=== PATIENT | male | born 1945 | race Caucasian/White ===

== ENCOUNTER 2023-04-30 13:27 | Outpatient (REF) | payer BC, MEDICARE, SELFPAY | END 2023-04-30 13:28 | disposition home or self-care (01) | LOC: HO.HKASLDS 13:27 | PROVIDERS: Visit Provider Internal Medicine Nephrology | DX: N18.30 Chronic kidney disease, stage 3 unspecified (principal) | CPT/HCPCS: 36415; 80051; 82565; 82570; 84156; 84520 ==

== ENCOUNTER 2023-05-08 12:10 | Outpatient (AMB) | payer BC, MEDICARE, SELFPAY ==
[2023-05-08 12:17] VITALS: BP 160/80; PULSE 72; BMI 39.0
--- NOTE | 2023-05-08 12:17 | HO.NEPHOV_ITS ---
HPI HPI Comments History of Present Illness Details I had the pleasure seeing Jon in follow-up of his hypertension. He still gets some twinges of pain on his left knee even after its replacement. He does not take any nonsteroidal anti-inflammatories for it. His blood pressure control is optimal and his sugars are under control. He denies any orthostatic symptoms, chest pain, shortness of breath, nausea, vomiting, diarrhea, pedal edema or urinary symptoms. He has not had any medication changes or hospitalizations. He feels well. All the systems were reviewed and were negative. [facility] Medical History (Updated 05/08/23 @ 13:13 by Dilip Goodman MD) Type 2 diabetes mellitus Hypertension CKD (chronic kidney disease) stage 3, GFR 30-59 ml/min Surgical History (Updated 05/08/23 @ 12:25 by Patsy Christina MA) History of total right knee replacement History of left knee replacement History of shoulder surgery History of back surgery Social History (Updated 05/08/23 @ 12:26 by Patsy Christina MA) Alcohol intake: never Patient Tobacco Use Status: Never used Tobacco Vital Signs 05/08/23 12:17 Height 5 ft 10 in Weight 271 lb 8 oz BMI 39.0 BP 160/80 H Blood Pressure Location Lt brachial Position Sitting Pulse 72 Pulse Source Pulse Oximeter Physical Exam Vital Signs: Last Vital Signs Pulse 72 05/08/23 12:17 BP 160/80 H 05/08/23 12:17 BMI result Body Mass Index 39.0 Const General: comfortable and no acute distress Orientation/consciousness: patient oriented x3 HEENT Head: Yes normocephalic Mouth: Normal oral and palatal mucosa present Eyes EOM: EOMs intact bilaterally Neck Neck: Yes supple Resp Auscultation: clear to auscultation bilaterally Cardio Jugular venous distension: no JVD Rate: regular rate GI Palpation (GI): Soft to palpation Auscultation: normal bowel sounds General: Yes no CVA tenderness Back/Spine/Pelvis Back: no CVA tenderness Skin General skin exam: no rashes or lesions noted Neuro General: patient oriented x3 and moves all extremities Extrem General: Yes no pedal edema Assessment & Plan Assessment & Plan (1) Hypertension: Code(s): I10 - Essential (primary) hypertension Qualifiers: Hypertension type: primary hypertension Qualified Code(s): I10 - Essential (primary) hypertension (2) CKD (chronic kidney disease) stage 2, GFR 60-89 ml/min: Code(s): N18.2 - Chronic kidney disease, stage 2 (mild) Perez Webb has mild CKD. His renal functions are close to baseline. He has no significant proteinuria. His blood pressure is at goal. He is tolerating current dose of NELLI-inhibitor well. He maintains good hydration. He avoids nonsteroidal anti-inflammatories. His serum potassium has been normal. He should be on a low-sodium diet. He should continue to take regular exercise. I did not make any medication changes today. All his questions were answered. Follow-up blood work ordered. Follow-up appointment given. Orders: Orders Electrolytes Today I10 - Essential (primary) hypertension, N18.30 - Chronic kidney disease, stage 3 unspecified Blood Urea Nitrogen Today I10 - Essential (primary) hypertension, N18.30 - Chronic kidney disease, stage 3 unspecified Creatinine Today I10 - Essential (primary) hypertension, N18.30 - Chronic kidney disease, stage 3 unspecified Protein Creatinine Ratio, Ur Today I10 - Essential (primary) hypertension, N18.30 - Chronic kidney disease, stage 3 unspecified Coding Level of Care Code Est Pt Level 4 (95534) Diagnoses Primary hypertension I10 Hypertension type: primary hypertension CKD (chronic kidney disease) stage 2, GFR 60-89 ml/min N18.2 Results Reviewed Nephrology Results: Sodium 138 mmol/L (135-145) 04/30/23 Potassium 5.2 mmol/L (3.3-5.1) H 04/30/23 Chloride 100 mmol/L (96-108) 04/30/23 Carbon Dioxide 29 mmol/L (22-29) 04/30/23 BUN 11 mg/dL (9-16) 04/30/23 Creatinine 1.11 mg/dL (0.5-1.4) 04/30/23 Urine Creatinine 90.43 mg/dL 04/30/23 Protein/Creatinin Ratio 0.13 (<0.2) 04/30/23
== END 2023-05-08 12:46 | disposition home or self-care (01) ==
PROVIDERS: PCP Internal Medicine; Visit Provider Internal Medicine Nephrology
DX: I12.9 Hypertensive chronic kidney disease with stage 1 through stage 4 chronic kidney disease, or unspecified chronic kidney disease (principal); N18.2 Chronic kidney disease, stage 2 (mild)
CPT/HCPCS: 99214

== ENCOUNTER → 2023-05-08 12:10 | Outpatient (BNVA) | payer BC, MEDICARE, SELFPAY | PROVIDERS: PCP Internal Medicine; Visit Provider Internal Medicine Nephrology | DX: I12.9 Hypertensive chronic kidney disease with stage 1 through stage 4 chronic kidney disease, or unspecified chronic kidney disease (principal); N18.2 Chronic kidney disease, stage 2 (mild) | CPT/HCPCS: 99212 ==

== ENCOUNTER 2023-11-11 09:09 | Outpatient (REF) | payer BC, MEDICARE, SELFPAY ==
[2023-11-11 17:42] LABS: Anion Gap 19 (12-20); Blood Urea Nitrogen 12 mg/dL (9-16); Carbon Dioxide 25 mmol/L (22-29); Chloride 100 mmol/L (96-108); Estimated Glomerular Filt Rate 57; Potassium 4.5 mmol/L (3.3-5.1); Sodium 139 mmol/L (135-145)
[2023-11-11 18:09] LABS: Protein/Creatinine Ratio, Ur 0.19 (<0.2); Total Protein Urine Random 19 mg/dL (<12)
== END 2023-11-11 09:10 | disposition home or self-care (01) ==
LOC: HO.HKASLDS 09:09
PROVIDERS: Visit Provider Internal Medicine Nephrology
DX: I12.9 Hypertensive chronic kidney disease with stage 1 through stage 4 chronic kidney disease, or unspecified chronic kidney disease (principal); N18.30 Chronic kidney disease, stage 3 unspecified
CPT/HCPCS: 36415; 80051; 82565; 82570; 84156; 84520

== ENCOUNTER 2023-11-13 11:44 | Outpatient (AMB) | payer BC, MEDICARE, SELFPAY ==
[2023-11-13 12:19] VITALS: BP 130/80; PULSE 97; O2SAT 95; BMI 38.3
--- NOTE | 2023-11-13 12:19 | HO.NEPHOV ---
Vital Signs 11/13/23 12:19 Height 5 ft 10 in Weight 267 lb BMI 38.3 BP 130/80 Blood Pressure Location Lt brachial Position Sitting Pulse 97 Pulse Source Pulse Oximeter Pulse Oximetry (%) 95 Oxygen Delivery Method Room Air Intake Visit Reasons: 6 mo fu w/ labs CKD/ Conf Voice Engineer Required: No Accompanied by: Self / Same As Patient Allergies Penicillins Allergy (Verified 11/13/23 12:21) Unknown HPI Comments Details: I had the pleasure seeing Jon in follow-up of his hypertension. He still gets some twinges of pain on his left knee even after its replacement. He does not take any nonsteroidal anti-inflammatories for it. His blood pressure control is optimal and his sugars are under control. He denies any orthostatic symptoms, chest pain, shortness of breath, nausea, vomiting, diarrhea, pedal edema or urinary symptoms. He has not had any medication changes or hospitalizations. He feels well. All the systems were reviewed and were negative. [facility] Medical History (Updated 11/13/23 @ 12:21 by REJI Shaikh) Skin lesion (~10/2023) Type 2 diabetes mellitus Hypertension CKD (chronic kidney disease) stage 3, GFR 30-59 ml/min Surgical History History of total right knee replacement History of left knee replacement History of shoulder surgery History of back surgery Social History Alcohol intake: never Patient Tobacco Use Status: Never used Tobacco Physical Exam Vital Signs: Last Vital Signs Pulse 97 11/13/23 12:19 BP 138/84 11/13/23 12:19 Pulse Ox 95 11/13/23 12:19 Oxygen Delivery Method Room Air 11/13/23 12:19 BMI result Body Mass Index 38.3 Const General: comfortable and no acute distress Orientation/consciousness: patient oriented x3 HEENT Head: Yes normocephalic Mouth: Normal oral and palatal mucosa present Eyes EOM: EOMs intact bilaterally Neck Neck: Yes supple Resp Auscultation: clear to auscultation bilaterally Cardio Jugular venous distension: no JVD Rate: regular rate GI Palpation (GI): Soft to palpation Auscultation: normal bowel sounds General: Yes no CVA tenderness Back/Spine/Pelvis Back: no CVA tenderness Skin General skin exam: no rashes or lesions noted Neuro General: patient oriented x3 and moves all extremities Extrem General: Yes no pedal edema Results Reviewed Nephrology Results: Sodium 139 mmol/L (135-145) 11/11/23 Potassium 4.5 mmol/L (3.3-5.1) 11/11/23 Chloride 100 mmol/L (96-108) 11/11/23 Carbon Dioxide 25 mmol/L (22-29) 11/11/23 BUN 12 mg/dL (9-16) 11/11/23 Creatinine 1.23 mg/dL (0.5-1.4) 11/11/23 Urine Creatinine 101.80 mg/dL 11/11/23 Protein/Creatinin Ratio 0.19 (<0.2) 11/11/23 Assessment & Plan Assessment & Plan (1) CKD (chronic kidney disease) stage 3, GFR 30-59 ml/min: Code(s): N18.30 - Chronic kidney disease, stage 3 unspecified Category: Medical Qualifiers: Chronic kidney disease stage 3 subtype: stage 3a (GFR 45-59) Qualified Code(s): N18.31 - Chronic kidney disease, stage 3a (2) Hypertension: Code(s): I10 - Essential (primary) hypertension Category: Medical Qualifiers: Hypertension type: primary hypertension Qualified Code(s): I10 - Essential (primary) hypertension Perez Webb has mild CKD. His renal functions are close to baseline. He has no significant proteinuria. His blood pressure is at goal. He is tolerating current dose of NELLI-inhibitor well. He maintains good hydration. He avoids nonsteroidal anti-inflammatories. His serum potassium has been normal. He should be on a low-sodium diet. He should continue to take regular exercise. I did not make any medication changes today. All his questions were answered. Follow-up blood work ordered. Follow-up appointment given. Orders: Orders Electrolytes Today I10 - Essential (primary) hypertension, N18.31 - Chronic kidney disease, stage 3a Creatinine Today I10 - Essential (primary) hypertension, N18.31 - Chronic kidney disease, stage 3a Blood Urea Nitrogen Today I10 - Essential (primary) hypertension, N18.31 - Chronic kidney disease, stage 3a Calcium Today I10 - Essential (primary) hypertension, N18.31 - Chronic kidney disease, stage 3a Coding Level of Care Code Est Pt Level 4 (46691) Diagnoses Stage 3a chronic kidney disease N18.31 Chronic kidney disease stage 3 subtype: stage 3a (GFR 45-59) Primary hypertension I10 Hypertension type: primary hypertension
== END 2023-11-13 12:45 | disposition home or self-care (01) ==
PROVIDERS: PCP Internal Medicine; Visit Provider Internal Medicine Nephrology
DX: N18.31 Chronic kidney disease, stage 3a (principal); I10 Essential (primary) hypertension
CPT/HCPCS: 99214

== ENCOUNTER → 2023-11-13 11:44 | Outpatient (BNVA) | payer BC, MEDICARE, SELFPAY | PROVIDERS: PCP Internal Medicine; Visit Provider Internal Medicine Nephrology ==

== ENCOUNTER 2024-05-25 12:35 | Outpatient (REF) | payer BC, MEDICARE, SELFPAY ==
--- OUTSIDE RECORDS SUMMARY | 2024-05-25 13:29 | XMS_ITS | Patient Health Record ---
Author Organization [facility] Address [address] [facility] [address] [place] [address] Care Team Providers Care Trailer Driver Name Role Phone Lesli Barry Primary Care Provider AMRIK Phipps Unavailable [phone] Allergies Allergen (clinical drug ingredient) Drug/Non Drug Allergy documented on EMR Reaction Allergy Type Onset Date Status Substance with penicillin structure and antibacterial mechanism of action (substance) Penicillins Unknown Drug Allergy Active Reason For Referral No Information Medications Medication SIG (Take, Route, Frequency, Duration) Notes Start Date End Date Status Simvastatin 20 MG 1 tablet in the evening Orally Once a day Active Catapres 0.1 MG 1 tablet Orally take 1 tablet by mouth twice a day Active Effexor 75 mg tabs- 5 tabs in the AM Active oxyCODONE HCl ER 10 MG 1 tablet Orally take 1 tab by mouth 2 times daily as needed(pain) Not-Taking SEROquel 200 MG as directed Orally Once a day Active Lidocaine 0.5 % as directed Externally apply topically Not-Taking traZODone HCl 100 MG as directed Orally take 50mg by mouth at bedtime Active Pamelor 50 MG as directed Orally take 1 cap by mouth at bedtime Not-Taking Topamax 100 MG as directed Orally take 3 tabs po daily and additinal 4 tabs at bedtime(7 tabs total per day) Active Ketoconazole 2 % as directed Externally apply to body folds 1-2 times a day as needed. Active Vasotec 2.5 MG as directed Orally take 2.5 mg by mouth daily Active Cholecalciferol 1000 unit tabs- Take 1000 tabs by mouth daily Active Toprol XL 100 MG 1 tablet Orally Once a day Active Problems Problem Type SNOMED Code ICD Code Onset Dates Problem Status W/U Status Risk Notes Problem [id number] Type 2 diabetes mellitus with other diabetic neurological complication (E11.49) Active confirmed Problem 791444034 PVD (peripheral vascular disease) (I73.9) Active confirmed Vital Signs Heart Rate 96 /min 04/23/2024 Temperature 97.5 degrees Fahrenheit 04/23/2024 Respiratory Rate 20 /min 04/23/2024 Height 5ft 10in in 04/23/2024 Weight 269.1 lbs 04/23/2024 BMI 38.61 kg/m2 04/23/2024 Encounters Encounter Location Date Provider Diagnosis [facility] [address] 07/11/2023 AMRIK AN Type 2 diabetes mellitus with other diabetic neurological complication E11.49 ; PVD (peripheral vascular disease) I73.9 ; Ingrown toenail of both feet L60.0 ; Dystrophic nail L60.3 ; Pain in left toe(s) M79.675 and Pain in right toe(s) M79.674 [facility] [address] 10/13/2023 AMRIK AN Type 2 diabetes mellitus with other diabetic neurological complication E11.49 ; PVD (peripheral vascular disease) I73.9 ; Ingrown toenail of both feet L60.0 ; Dystrophic nail L60.3 ; Pain in left toe(s) M79.675 and Pain in right toe(s) M79.674 [facility] [address] 01/21/2024 AMRIKMAL AN Type 2 diabetes mellitus with other diabetic neurological complication E11.49 ; PVD (peripheral vascular disease) I73.9 ; Ingrown toenail of both feet L60.0 ; Dystrophic nail L60.3 ; Pain in left toe(s) M79.675 and Pain in right toe(s) M79.674 [facility] [address] 04/23/2024 AMRIK AN Type 2 diabetes mellitus with other diabetic neurological complication E11.49 ; PVD (peripheral vascular disease) I73.9 ; Ingrown toenail of both feet L60.0 ; Dystrophic nail L60.3 ; Pain in left toe(s) M79.675 and Pain in right toe(s) M79.674 Assessments Encounter Date Diagnosis (ICD Code) Assessment Notes Treatment Notes Treatment Clinical Notes Section Notes 07/11/2023 Type 2 diabetes mellitus with other diabetic neurological complication (ICD-10 - E11.49) Discussed with patient regarding proper glucose control, exercise, and diet. Explained to patient proper shoe gear, and importance of daily foot checks. His diabetic foot exam remains unchanged this visit. I reviewed neuropathy and why it occurs in diabetics. I educated the patient on proper blood sugar control and the importance of [id number] of less than 7.0%. I reviewed the signs and symptoms of neuropathy with the patient. 10/13/2023 Type 2 diabetes mellitus with other diabetic neurological complication (ICD-10 - E11.49) Discussed with patient regarding proper glucose control, exercise, and diet. Explained to patient proper shoe gear, and importance of daily foot checks. His diabetic foot exam remains unchanged this visit. I reviewed neuropathy and why it occurs in diabetics. I educated the patient on proper blood sugar control and the importance of [id number] of less than 7.0%. I reviewed the signs and symptoms of neuropathy with the patient. 01/21/2024 Type 2 diabetes mellitus with other diabetic neurological complication (ICD-10 - E11.49) Discussed with patient regarding proper glucose control, exercise, and diet. Explained to patient proper shoe gear, and importance of daily foot checks. His diabetic foot exam remains unchanged this visit. I reviewed neuropathy and why it occurs in diabetics. I educated the patient on proper blood sugar control and the importance of [id number] of less than 7.0%. I reviewed the signs and symptoms of neuropathy with the patient. 04/23/2024 Type 2 diabetes mellitus with other diabetic neurological complication (ICD-10 - E11.49) Discussed with patient regarding proper glucose control, exercise, and diet. Explained to patient proper shoe gear, and importance of daily foot checks. His diabetic foot exam remains unchanged this visit. I reviewed neuropathy and why it occurs in diabetics. I educated the patient on proper blood sugar control and the importance of [id number] of less than 7.0%. I reviewed the signs and symptoms of neuropathy with the patient. 01/21/2024 PVD (peripheral vascular disease) (ICD-10 - I73.9) No change in vascular exam this visit. 04/23/2024 PVD (peripheral vascular disease) (ICD-10 - I73.9) No change in vascular exam this visit. 10/13/2023 PVD (peripheral vascular disease) (ICD-10 - I73.9) No change in vascular exam this visit. 07/11/2023 PVD (peripheral vascular disease) (ICD-10 - I73.9) No change in vascular exam this visit. 07/11/2023 Ingrown toenail of both feet (ICD-10 - L60.0) 10/13/2023 Ingrown toenail of both feet (ICD-10 - L60.0) 04/23/2024 Ingrown toenail of both feet (ICD-10 - L60.0) 01/21/2024 Ingrown toenail of both feet (ICD-10 - L60.0) 01/21/2024 Dystrophic nail (ICD-10 - L60.3) Aseptic trimming of toenails x 10 with a handkerchief cutter, pt tolerated well. Discussed with the patient that routine nail care services are only covered by insurance every 60 days. Pt understands that if they would like to return prior to this time frame, they may have to pay out of pocket. 04/23/2024 Dystrophic nail (ICD-10 - L60.3) Aseptic trimming of toenails x 10 with a handkerchief cutter, pt tolerated well. Discussed with the patient that routine nail care services are only covered by insurance every 60 days. Pt understands that if they would like to return prior to this time frame, they may have to pay out of pocket. 10/13/2023 Dystrophic nail (ICD-10 - L60.3) Aseptic trimming of toenails x 10 with a handkerchief cutter, pt tolerated well. Discussed with the patient that routine nail care services are only covered by insurance every 60 days. Pt understands that if they would like to return prior to this time frame, they may have to pay out of pocket. 07/11/2023 Dystrophic nail (ICD-10 - L60.3) Aseptic trimming of toenails x 10 with a handkerchief cutter, pt tolerated well. Discussed with the patient that routine nail care services are only covered by insurance every 60 days. Pt understands that if they would like to return prior to this time frame, they may have to pay out of pocket. 07/11/2023 Pain in left toe(s) (ICD-10 - M79.675) 10/13/2023 Pain in left toe(s) (ICD-10 - M79.675) 04/23/2024 Pain in left toe(s) (ICD-10 - M79.675) 01/21/2024 Pain in left toe(s) (ICD-10 - M79.675) 04/23/2024 Pain in right toe(s) (ICD-10 - M79.674) 10/13/2023 Pain in right toe(s) (ICD-10 - M79.674) 01/21/2024 Pain in right toe(s) (ICD-10 - M79.674) 07/11/2023 Pain in right toe(s) (ICD-10 - M79.674) Plan Of Treatment Next Appt Details Provider Name:AMRIKMAL MURIRETA NATALIYA, 07/23/2024 01:00:00 PM, [address], [address], Medical (General) History Medical History History ICD Code Presence of right artificial knee joint Z96.651 Personal history of other malignant neop lasm of skin Z85.828 Controlled type 2 diabetes m ellitus with other neurologic complication, without long-term current use of insulin E11.49 Diabetes mellitus type 2 with neurologic al manifestations E11.49 Sebaceous cyst L72.3 Personal history of other malignant neop lasm of skin Z85.828 Fatty (change of) liver, not elsewhere c lassified K76.0 Morbid obesity E66.01 Type 2 diabetes mellitus with unspecifie d complications E11.8 Uncontrolled type 2 diabetes mellitus wi th hyperglycemia E11.65 Sciatica, unspecified side M54.30 Essential (primary) hypertension I10 Hyperlipidemia, unspecified E78.5 Anxiety disorder, unspecified F41.9 Pain in unspecified shoulder M25.519 right knee replacement 2020 left knee replacement 2021 COVID vaccinated X 3 (Pfizer) Surgical History Surgery Date(Month/Year) knee replacement right 2020 cataract removal bilaterally back surgery basal cell carcinoma excision shoulder surgery squamous cell carcinoma excision left knee replacement 03/31/2022 Hospitalization History Reason Date(Month/Year) left knee replacement 03/31/2022 shoulder surgery back surgery right knee replacement 2019
--- OUTSIDE RECORDS SUMMARY | 2024-05-25 13:29 | XMS_ITS ---
Author Organization [facility] Address [address] [address] Care Team Providers Care Pipe Layer Helper Name Role Phone Lesli Barry Primary Care Provider RADHA Phipps Unavailable [phone] Allergies Allergen (clinical drug ingredient) Drug/Non Drug Allergy documented on EMR Reaction Allergy Type Onset Date Status Substance with penicillin structure and antibacterial mechanism of action (substance) Penicillins Unknown Drug Allergy Active REASON FOR VISIT 3 month f/u Medications Medication SIG (Take, Route, Frequency, Duration) Notes Start Date End Date Status oxyCODONE HCl ER 10 MG 1 tablet Orally take 1 tab by mouth 2 times daily as needed(pain) Not-Taking Effexor 75 mg tabs- 5 tabs in the AM Active Cholecalciferol 1000 unit tabs- Take 1000 tabs by mouth daily Active Pamelor 50 MG as directed Orally take 1 cap by mouth at bedtime Not-Taking Lidocaine 0.5 % as directed Externally apply topically Not-Taking Ketoconazole 2 % as directed Externally apply to body folds 1-2 times a day as needed. Active Topamax 100 MG as directed Orally take 3 tabs po daily and additinal 4 tabs at bedtime(7 tabs total per day) Active Vasotec 2.5 MG as directed Orally take 2.5 mg by mouth daily Active Simvastatin 20 MG 1 tablet in the evening Orally Once a day Active Catapres 0.1 MG 1 tablet Orally take 1 tablet by mouth twice a day Active Toprol XL 100 MG 1 tablet Orally Once a day Active traZODone HCl 100 MG as directed Orally take 50mg by mouth at bedtime Active SEROquel 200 MG as directed Orally Once a day Active Vital Signs Weight 271.3 lbs 01/21/2024 Height 5ft 10in in 01/21/2024 BMI 38.92 kg/m2 01/21/2024 Encounters Encounter Location Date Provider Diagnosis [facility] [address] [address] 01/21/2024 RADHA GAMBOA Type 2 diabetes mellitus with other diabetic neurological complication E11.49 ; PVD (peripheral vascular disease) I73.9 ; Ingrown toenail of both feet L60.0 ; Dystrophic nail L60.3 ; Pain in left toe(s) M79.675 and Pain in right toe(s) M79.674 Assessments Encounter Date Diagnosis (ICD Code) Assessment Notes Treatment Notes Treatment Clinical Notes Section Notes 01/21/2024 Type 2 diabetes mellitus with other [...] blood sugar control and the importance of [id number] of less than 7.0%. I reviewed the signs and symptoms of neuropathy with the patient. 01/21/2024 PVD (peripheral vascular disease) (ICD-10 - I73.9) No change in vascular exam this visit. 01/21/2024 Ingrown toenail of both feet (ICD-10 - L60.0) 01/21/2024 Dystrophic nail (ICD-10 - L60.3) Aseptic trimming of toenails x 10 with a building stonecutter, pt tolerated well. Discussed with the patient that routine nail care services are only covered by insurance every 60 days. Pt understands that if they would like to return prior to this time frame, they may have to pay out of pocket. 01/21/2024 Pain in left toe(s) (ICD-10 - M79.675) 01/21/2024 Pain in right toe(s) (ICD-10 - M79.674) Plan Of Treatment Next Appt Details Follow Up: 3 Months, Reason: Provider Name:RADHA GAMBOA, 07/23/2024 01:00:00 PM, [address] [facility], [facility] [address], [place], [address], Progress Notes * Jon ROSASB: 9[birth year] (78 yo M)Acc No.[id number]:01/21/2024 Patient:Jon HENDRICKSON Jr Provider:?Radha Gamboa DPM :1945???Age:78 Y???Sex:Male Domenico e:01/21/2024 Address:[address] [place] [address] Pcp:Lesli Barry Subjective: * Chief Complaints: * ???3 month f/u * HPI: ???Constitutional:? This 78 y/o male presents to my office with a complaint of ingrown toenails and a diabetic foot evaluation. He denies any new issues with tingling or numbness of his feet. He complains of long, thick painful ingrowing toenails of both feet. He has no other foot complaints this visit. His last visit for diabetes management with his PCP care team Dr. Barry was 01/16/2024. His last HGBA1C was 8.1 Allergies and medical history reviewed. * ROS:?GENERAL: Pt denies nausea, fever, vomiting, chills, or shortness of breath. Pt in NAD. ALLERGY: patient denies any new allergy HEME/ONC: patient denies any bleeding or clotting disorders CARDIOLOGY: pt denies chest pain, palpitations LUNGS: pt denies shortness of breath ABDOMEN: patient denies any bloating, abdominal pain, or swelling MUSCULOSKELETAL: See HPI, right knee pain s/p right knee replacement 2 months ago. SKIN: see HPI, otherwise no lesions, rash or itching NEURO: No persistent headache, weakness or numbness PSYCH: patient denies any current anxiety or depression The remainder of the review of systems is noncontributory. * Medical History:? * Surgical History:?knee repla cement right 2020cataract removal bilaterally back surgery basal cell carcinoma excision shoulder surgery squamous cell carcinoma excision left knee replacement 03/31/2022 * Hospitalization/Major Diagno stic Procedure:?right knee replacement 2020back surgery shoulder surgery left knee replacement 03/31/2022 * Family History:?Father: hype rtension, diabetes.?Mother: hypertension.? * Social History:?Tobacco: former smoker, quit 1993 Alcohol: no. * Medications:?TakingSEROquel 200 MG Tablet as directed Orally Once a day traZODone HCl 100 MG Tablet as directed Orally take 50mg by mouth at bedtime Toprol XL 100 MG Tablet Extended Release 24 Hour 1 tablet Orally Once a day Simvastatin 20 MG Tablet 1 tablet in the evening Orally Once a day Catapres 0.1 MG Tablet 1 tablet Orally take 1 tablet by mouth twice a day Topamax 100 MG Tablet as directed Orally take 3 tabs po daily and additinal 4 tabs at bedtime(7 tabs total per day) Ketoconazole 2 % Cream as directed Externally apply to body folds 1-2 times a day as needed. Vasotec 2.5 MG Tablet as directed Orally take 2.5 mg by mouth daily Cholecalciferol , Notes to Pharmacist: 1000 unit tabs- Take 1000 tabs by mouth dailyEffexor , Notes to Pharmacist: 75 mg tabs- 5 tabs in the AMTaking SEROquel 200 MG Tablet as directed Orally Once a day Taking traZODone HCl 100 MG Tablet as directed Orally take 50mg by mouth at bedtime Taking Toprol XL 100 MG Tablet Extended Release 24 Hour 1 tablet Orally Once a day Taking Simvastatin 20 MG Tablet 1 tablet in the evening Orally Once a day Taking Catapres 0.1 MG Tablet 1 tablet Orally take 1 tablet by mouth twice a day Taking Topamax 100 MG Tablet as directed Orally take 3 tabs po daily and additinal 4 tabs at bedtime(7 tabs total per day) Taking Ketoconazole 2 % Cream as directed Externally apply to body folds 1-2 times a day as needed. Taking Vasotec 2.5 MG Tablet as directed Orally take 2.5 mg by mouth daily Taking Cholecalciferol , Notes to Pharmacist: 1000 unit tabs- Take 1000 tabs by mouth dailyTaking Effexor , Notes to Pharmacist: 75 mg tabs- 5 tabs in the AMNot-TakingoxyCODONE HCl ER 10 MG Tablet ER 12 Hour Abuse-Deterrent 1 tablet Orally take 1 tab by mouth 2 times daily as needed(pain) Lidocaine 0.5 % Gel as directed Externally apply topically Pamelor 50 MG Capsule as directed Orally take 1 cap by mouth at bedtime Medication List reviewed and reconciled with the patientNot-Taking oxyCODONE HCl ER 10 MG Tablet ER 12 Hour Abuse-Deterrent 1 tablet Orally take 1 tab by mouth 2 times daily as needed(pain) Not-Taking Lidocaine 0.5 % Gel as directed Externally apply topically Not-Taking Pamelor 50 MG Capsule as directed Orally take 1 cap by mouth at bedtime Medication List reviewed and reconciled with the patient * Allergies:?Penicillinsno[All ergies Verified] Objective: * Vitals:?Wt: 271.3 lbs, Ht: 5 ft 10in, BMI: 38.92 Index, Ht-cm: 177.8, Wt-k.06 kg. * Examination: ???General Examination: ???GENERAL: Patient appears well nourished, with NAD. ?VASCULAR: Dorsalis pedis pulses are 1/4 left and 0/4 right with strong biphasic dopplered pulse, and Posterior tibial pulses are 1/4 bilaterally. Capillary filling time within normal limits the digits. No pallor on elevation or rubor on dependency. No hair growth. Varicosities of the legs, right leg swelling. Denies rest pain or claudication pain. Each foot temperature is within normal limits. Non painful erythema to the lateral right 5th toe. ?NEUROLOGICAL: Sharp/dull sensation intact bilaterally, protective sensation intact 10/10 with 5.07 [place] bilaterally, vibratory sensation with tuning fork diminished to the tibial tuberosity bilaterally, position sense intact bilaterally to the tibial tuberosity. ?ORTHOPEDIC: Good muscle strength 4/5 of all flexors and extensors. Dorsi flexion of ankle ,0 degrees, plantar flexion WNL. No muscle atrophy. ?DERMATOLOGICAL: Incurvated thickened toenails 3mm elongated yellowed discolored toenails of all ten toes with subungual debris and tenderness on palpation. No masses, openings, or skin lesions noted. Normal skin temperature, normal skin turgor. ?BIOMECHANICS: STJ ROM limited, MTJ ROM limited, 1st MPJ ROM limited. ?SHOES: sneakers. Assessment: * Assessment: 1.?Type 2 diabetes mellitus with other diabetic neurological complication - E11.49 (Primary)?2.?PVD (peripheral vascular disease) - I73.9?3.?Ingrown toenail of both feet - L60.0?4.?Dystrophic nail - L60.3?5.?Pain in left toe(s) - M79.675?6.?Pain in right toe(s) - M79.674? Plan: * Treatment: 2.?PVD (peripheral vascular disease)? Clinical Notes: No change in vascular exam this visit. ?? 3.?Dystrophic nail? Clinical Notes: Aseptic trimming of toenails x 10 with a building stonecutter, pt tolerated well. Discussed with the patient that routine nail care services are only covered by insurance every 60 days. Pt understands that if they would like to return prior to this time frame, they may have to pay out of pocket.?? * Procedure Codes:?G0127 JEMIMA ING DYSTROPHIC NAILS ANY # * Follow Up:?3 Months * Billing Information: * Visit Code:? * Procedure Codes:? G0127 TRIMMING DYSTROPHIC NAILS ANY #. * Sign off status: Completed true * Provider:?Radha Gamboa DPM Date:? 01/21/2024 Generated for Em reyez/Mehdi/Kaleb on:?05/25/2024 01:28 PM EST History and Physical Notes * HPI (History of Present Illness) Category Sub-Category Detail Notes Category Not es Constitutional This 78 y/o m jaimie presents to my office with a complaint of ingrown toenails and a diabetic foot evaluation. He denies any new issues with tingling or numbness of his feet. He complains of long, thick painful ingrowing toenails of both feet. He has no other foot complaints this visit. His last visit for diabetes management with his PCP care team Dr. Barry was 01/16/2024. His last HGBA1C was 8.1 Allergies and medical history reviewed. Examination Category Sub-Category Detail Notes Category Not es General Examination GENERAL: Patient appears well nourished, with NAD. VASCULAR: Dorsalis pedis pulses are 1/4 left and 0/4 right with strong biphasic dopplered pulse, and Posterior tibial pulses are 1/4 bilaterally. Capillary filling time within normal limits the digits. No pallor on elevation or rubor on dependency. No hair growth. Varicosities of the legs, right leg swelling. Denies rest pain or claudication pain. Each foot temperature is within normal limits. Non painful erythema to the lateral right 5th toe. NEUROLOGICAL: Sharp/dull sensation intact bilaterally, protective sensation intact 10/10 with 5.07 [place] bilaterally, vibratory sensation with tuning fork diminished to the tibial tuberosity bilaterally, position sense intact bilaterally to the tibial tuberosity. ORTHOPEDIC: Good muscle strength 4/5 of all flexors and extensors. Dorsi flexion of ankle ,0 degrees, plantar flexion WNL. No muscle atrophy. DERMATOLOGICAL: Incurvated thickened toenails 3mm elongated yellowed discolored toenails of all ten toes with subungual debris and tenderness on palpation. No masses, openings, or skin lesions noted. Normal skin temperature, normal skin turgor. BIOMECHANICS: STJ ROM limited, MTJ ROM limited, 1st MPJ ROM limited. SHOES: sneakers
--- OUTSIDE RECORDS SUMMARY | 2024-05-25 13:29 | XMS_ITS | Clinical Summary ---
Author Organization [facility] [address] [place] [address] [place] [phone] Phone Care Team Providers Care Physician Coding Specialist Name Role Phone Lesli Barry MD Primary Care Provider [phone] Allergies Active Allergy Reactions Criticality Noted Date Comments Penicillin G Potassium 03/11/2008 Medications Medication Sig Dispensed Refills Start Date End Date Status metFORMIN (GLUCOPHAGE) 500 mg tablet Take 2 tablets (1,000 mg total) by mouth 2 (two) times a day with meals. 360 tablet 03/23/2024 Active simvastatin (ZOCOR) 20 mg tablet Take 1 Tablet by mouth at bedtime. 02/02/2024 Active metoprolol succinate (TOPROL-XL) 100 mg 24 hr tablet Take 1 Tablet by mouth daily. 01/19/2024 Active nortriptyline (PAMELOR) 50 mg capsule Take 2 Capsules by mouth at bedtime. B.H. Active ARIPiprazole (ABILIFY) 2 mg tablet Take 0.5 Tablets by mouth daily. Active cetirizine (ZyrTEC) 10 mg tablet Take 1 Tablet by mouth daily. Active topiramate (TOPAMAX) 100 mg tablet Take 1 Tablet by mouth daily. Active ketoconazole (NIZORAL) 2 % cream APPLY TO GROIN AND AXILLA TWICE DAILY 01/31/2022 Active lancets 33 gauge misc Inject 1 Stick into the skin daily. Use to check blood sugar once daily 02/21/2022 Active traZODone (DESYREL) 100 mg tablet Take 1 tablet by mouth at bedtime. Active QUEtiapine (SEROquel) 200 mg tablet Take 1 tablet by mouth. Active OneTouch Ultra Test test strip Test blood sugar once daily 12/13/2019 Active enalapril (VASOTEC) 2.5 mg tablet Take 1 tablet (2.5 mg total) by mouth 1 (one) time each day. Active cholecalciferol (VITAMIN D-3) 25 mcg (1,000 unit) tablet Take 1,000 Tabs by mouth daily. Active prednisoLONE acetate (PRED FORTE) 1 % ophthalmic suspension Administer 1 drop into the left eye 4 (four) times a day. 03/01/2024 Active venlafaxine 150 mg 24 hr tablet Take 1 tablet (150 mg total) by mouth 1 (one) time each day with breakfast. 02/02/2024 Active venlafaxine 225 mg 24 hr tablet 1 tablet (225 mg total) 1 (one) time each day with breakfast. 02/02/2024 Active cloNIDine (CATAPRES) 0.1 mg tablet Take 1 tablet (0.1 mg total) by mouth every 12 (twelve) hours. 180 tablet 04/02/2024 Active Active Problems Problem Noted Date Diagnosed Date Morbid obesity with BMI of 40.0-44.9, adult 02/26 COVID-19 virus infection 05/08/2021 Overview (03/23/2024): 1.4.22 DM (diabetes mellitus), type 2 with renal compli cations 02/07/2020 Microalbuminuria 02/07/2020 Total knee replacement status 10/18/2019 Overview (03/23/2024): bilateral Diabetes mellitus type 2 with neurological manif estations 02/01/2015 Fatty liver disease, nonalcoholic 08/15/2011 Sciatica 07/16/2009 Anxiety disorder 03/11/2008 Hyperlipidemia 03/11/2008 Hypertension 03/11/2008 Shoulder pain 03/11/2008 Overview (03/16/2024): Right shoulder surgery x 3 Encounters Date Type Department Care Team Description 04/26/2024 3:45 PM EST Office Visit Adult Medicine [address] [phone] Lesli Barry MD Type 2 diabetes mellitus with diabetic microalbuminuria, without long-term current use of insulin ([facility]) (Primary Dx); Microalbuminuria; Primary hypertension; Other hyperlipidemia from Last 3 Months Immunizations Name Administration Dates Next Due Influenza trivalent, 0.5mL ( Fluad) 65yo and older 01/15/2023,02/14/2022,02/01/2021,01/18,01/25/2019,01/14/2018,02/01/2017 ,02/04/2015 Influenza trivalent, 0.5mL, preservative free (Fluarix; FluLaval; Fluzone) ages 6mo and older (Afluria) 3 years and older 01/31/2014,01/29/2013,02/18/2012,02/14,02/08/2009,03/11/2008 Pfizer (ages 12 & older) Biv alent, COVID-19 01/15/2023,02/14/2022 Pneumococcal conjugate 13 va lent (Prevnar 13, PCV13) 2mo and older 10/13/2015 Pneumococcal polysaccharide 23 valent (Pneumovax 23) 2yo and older 01/14/2018,01/29/2013 Respiratory syncytial virus (RSV), unspecified 03/25/2023 Tdap Tetanus diptheria acell ular pertussis (Boostrix; Adacel) 7yo and older 08/09/2015,06/23/2012 Zoster recombinant (Shingrix ) 19yo and older 04/25/2019,01/25/2019 Surgical History Surgery Date Site/Laterality Comments SHOULDER SURGERY 2003, 2004 Right BACK SURGERY 1999 : Dr. Rivera CATARACT EXTRACTION 2018 Bilateral Medical History Medical History Date Comments Diabetes mellitus type 2 wit h neurological manifestations ([facility]) 02/01/2015 History of basal cell carcinoma 05/28/2012 BCC 02/11 back (superficial) 01/11 right chest wall (nodular) 06/13 right forearm (infiltrative with metatypical features) 05/10 left preauricular area (nodular) History of squamous cell car cinoma of 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 (well differentiated, superficial invasion) DM (diabetes mellitus), type 2 with renal complications ([facility]) 02/07/2020 Microalbuminuria 02/07/2020 COVID-19 virus infection 05/08/2021 : 1.4.2 2 Family History Medical History Relation Name Comments Hypertension Father DM Hypertension Mother stroke Relation Name Status Comments Father Mother Social History Tobacco Use Types Packs/Day Years Used Date Smoking Tobacco: Former Cigarettes Q uit: 04/28/1992 Smokeless Tobacco: Never Tobacco Cessation:Counseling Given: Not Answered Alcohol Use Standard Drinks/Week Comments No 0 (1 standard drink = 0.6 oz pur e alcohol) Sex and Gender Information Value Date Recorded Sex Assigned at Not on file Gender Identity Not on file Sexual Orientation Not on file Job Start Date Occupation Industry Not on file Not on file Not on file Obstetrics History Last Filed Vital Signs Vital Sign Reading Time Taken Comments Blood Pressure 134/62 04/26/2024 3:44 PM EST Pulse 85 04/26/2024 3:44 PM EST Temperature 35.6 ??C (96.1 ??F) 04/26/2024 3:44 PM ES T Respiratory Rate 18 04/26/2024 3:44 PM EST Oxygen Saturation 98% 04/26/2024 3:44 PM EST Inhaled Oxygen Concentration - - Weight 122 kg (268 lb 3.2 oz) 04/26/2024 3:44 PM EST Height 177.8 cm (5' 10 ) 04/26/2024 3:44 PM EST Body Mass Index 38.48 04/26/2024 3:44 PM EST Plan of Treatment Upcoming Encounters Date Type Department Care Team (Late st Contact Info) Description 09/30/2024 2:00 PM EDT Office Visit Adult Medicine [address] [phone] Lesli Barry MD [address] [place] [phone] Health Maintenance Due Date Last Done Comments Social Influencers of Health Screening 04/06/2022 RSV Immunization Patients 60+ Years Old (1 - 1-dose 75+ series) 08/15/2022 03/25/2023 Influenza Vaccine (#1) 2023 3, 02/14/2022, 02/01/2021, Additional history exists Diabetes: Annual Urine Albumin-Creatinine Ratio (uACR) 05/19/2024 05/19/2023 Falls Risk Assessment 05/19/2024 05/19/2023 Diabetes: Annual Foot Exam 10/12/2024 10/13/2023 Diabetes: Blood Sugar Control Test (HGBA1C) 11/01/2024 05/04/2024, 01/19/2024, 01/19/2024, Additional history exists Depression Screening 01/18/2025 01/19/2024 Diabetes: Annual GFR (Glomerular Filtration Rate) 01/18/2025 01/19/2024, 01/19/2024 Hypertension/CHF/CAD Annual BMP Blood Test 01/18/2025 01/19/2024, 01/19/2024 Medicare Annual Wellness Visit 01/18/2025 01/19/2024 Diabetes: Annual Retina Eye Exam 02/23/2025 02/24/2024 DTaP,Tdap,and Td Vaccines (3 - Td or Tdap) 08/08/2025 08/09/2015, 06/23/2012 Cholesterol Screening (Lipid Panel) 09/16/2028 09/17/2023, 09/17/2023 Hepatitis C Screening Completed 09/29/2012 Pneumococcal Vaccine: 65+ Years Completed 01/14/2018, 10/13/2015, 01/29/2013 Zoster Vaccines Completed 04/25/2019, 01/25/2019 RSV Immunization Patients Under 20 months Aged Out 03/25/2023 No longer eligible based on patient's age to complete this topic COVID-19 Vaccine Completed 02/20/2024, , 02/14/2022, Additional history exists HIB Vaccines Aged Out No longer eligi ble based on patient's age to complete this topic HPV Vaccines Aged Out No longer eligi ble based on patient's age to complete this topic Hepatitis A Vaccines Aged Out No long er eligible based on patient's age to complete this topic Hepatitis B Vaccines Aged Out No long er eligible based on patient's age to complete this topic IPV Vaccines Aged Out No longer eligi ble based on patient's age to complete this topic MMR Vaccines Aged Out No longer eligi ble based on patient's age to complete this topic Meningococcal ACWY Vaccine Aged Out N o longer eligible based on patient's age to complete this topic Varicella Vaccines Aged Out No longer eligible based on patient's age to complete this topic Procedures Procedure Name Priority Date/Time Associated Diagnosis Comments HEMOGLOBIN A1C Routine 05/04/2024 2:08 PM EST Type 2 diabetes mellitus with diabetic microalbuminuria, without long-term current use of insulin ([facility]) DEPRESSION SCREENING Routine 01/19/2024 ANNUAL BMP BLOOD TEST Routine 01/19/2024 DIABETES FOOT EXAM Routine 10/13/2023 LIPID PANEL Routine 09/17/2023 FALLS RISK ASSESSMENT Routine 05/19/2023 URINE ALBUMIN CREATININE RATIO Routine 05/19/2023 HEPATITIS C SCREENING Routine 09/29/2012 from Last 3 Months or Most Recently Relevant to Health Maintenance Results * (ABNORMAL) Hemoglobin A1c (05/04/2024 2:08 PM EST) [facility] Hemoglobin A1C 7.2(H) <6.5 % LAB CHEMISTRY METHOD 05/04/2024 9:53 PM EST [facility] Mean Bld Glu Estim. 160 mg/dL LAB CHEMISTRY METHOD 05/04/2024 9:53 PM EST [facility] Blood Venous blood specimen / Unknown Venipuncture / Unknown 05/04/2024 2:08 PM EST 05/04/2024 2:08 PM EST Lesli Barry MD LAB BLOOD ORDERABLES [facility] [address] [place] [address], * Annual BMP Blood Test (01/19/2024) [facility] Annual BMP Blood Test abstracted Historical Provider MD SINAI DÍAZ E * Depression Screening (01/19/2024) [facility] Depression Screening abstracted Historical Provider [facility] [employer] * Diabetes Foot Exam (10/13/2023) [facility] Diabetes: Annual Foot Exam abstracted Historical Provider [facility] SVENJENNA E * (ABNORMAL) Lipid panel (09/17/2023) [facility] LDL/HDL Ratio 3 0 - 4 Triglycerides 263(A) 0 - 150 mg/dL Cholesterol 133 0 - 200 mg/dL HDL 50 40 mg/dL LDL Cholesterol 31 0 - 100 mg/dL Blood Venous blood specimen / Unknown Historical Provider LAB BLOOD ORDERAB [facility] Urine Albumin Creatinine Ratio (05/19/2023) [facility] Urine Albumin Creatinine Ratio abstracted [facility] Provider [facility] [employer] * Falls Risk Assessment (05/19/2023) [facility] Falls Risk Assessment abstracted Historical Provider [facility] * Hepatitis C Screening (09/29/2012) [facility] Hepatitis C Screening abstracted [facility] Provider [facility] [employer] [facility] from Last 3 Months or Most Recently Relevant to Health Maintenance Care Teams Physician Coding Specialist Relationship Specialty Start Date End Date Lesli Barry MD [address] [place] [address] PCP - General Internal Medicine 11/01/19
--- OUTSIDE RECORDS SUMMARY | 2024-05-25 13:29 | XMS_ITS | Clinical Summary ---
Author Organization [facility] Address [address] [facility] [address] [place] [address] Phone Care Team Providers Care Vc++ Developer Name Role Phone Lesli Barry MD Primary Care Provider [phone] Allergies Active Allergy Reactions Criticality Noted Date Comments Penicillins Other (see comments) 09/13/2005 Medications cholecalciferol (VITAMIN D-3) 25 MCG (1000 UT) capsule Take 2 capsules by mouth 1 (one) time each day Active cloNIDine (CATAPRES) 0.1 MG tablet Take 1 tablet by mouth 2 (two) times a day Active metoprolol succinate XL (TOPROL-XL) 100 MG 24 hr tablet Take 1 tablet by mouth 1 (one) time each day Active nortriptyline (PAMELOR) 50 MG capsule Take 2 capsules by mouth 1 (one) time each day Active QUEtiapine (SEROquel) 200 MG tablet Take 1 tablet by mouth 1 (one) time each day Active simvastatin (ZOCOR) 20 MG tablet Take 1 tablet by mouth every night Active topiramate (TOPAMAX) 100 MG tablet Take 3 tablets by mouth 1 (one) time each day in the morning 4 tabs pm Active traZODone (DESYREL) 100 MG tablet Take 0.5 tablets by mouth 1 (one) time each day Active venlafaxine XR (EFFEXOR-XR) 75 MG 24 hr capsule Take 5 tablets by mouth 1 (one) time each day Active cetirizine (ZyrTEC) 10 MG tablet Take 10 mg by mouth 1 (one) time each day Active ARIPiprazole (ABILIFY) 2 MG tablet Take 1 mg by mouth 1 (one) time each day Active diclofenac (VOLTAREN) 75 MG EC tablet Take 75 mg by mouth 2 (two) times a day Do not crush, chew, or split. Active ketoconazole (NIZORAL) 2 % cream Apply topically 1 (one) time each day Active prednisoLONE acetate (PRED FORTE) 1 % ophthalmic suspension 1 drop 2 (two) times a day Active traMADol (ULTRAM) 50 MG tablet Take 50 mg by mouth 0 Active oxyCODONE (ROXICODONE) 5 MG immediate release tablet if needed 2 Active enalapril (VASOTEC) 2.5 MG tablet TAKE 1 TABLET BY MOUTH EVERY DAY 90 tablet 6 3 Active metFORMIN (GLUCOPHAGE) 500 MG tablet Take 500 mg by mouth in the morning and 500 mg in the evening. Take with meals. 3 Active Active Problems Problem Noted Date Diagnosed Date Medication interaction 07/11/2022 Stage 3a chronic kidney disease 01/10/2022 Erectile dysfunction 07/09/2021 Chronic depression 07/09/2021 Decreased renal function 07/09/2021 Medication interaction 07/09/2021 Edema of lower extremity 07/09/2021 Ex-cigarette smoker 07/09/2021 Decreased reflex 07/09/2021 Normocytic normochromic anemia 07/09/2021 Vitamin D deficiency 07/09/2021 Acute nontraumatic kidney injury 06/26/2020 Benign hypertensive renal disease 06/26/2020 Chronic kidney disease stage 2 06/26/2020 Microalbuminuria 02/07/2020 Type 2 diabetes mellitus 02/07/2020 Hypertension 03/11/2008 Resolved Problems Problem Noted Date Diagnosed Date Resolved Date Body mass index 30+ - obesity 07/09/2021 01/10/2022 Constipation 07/09/2021 01/10/2022 Neck pain 07/09/2021 01/10/2022 Not getting enough sleep 07/09/2021 Post-laminectomy syndrome 07/09/2021 COVID-19 05/08/2021 01/10/2022 Overview (07/09/2021): 1.4.22 History of total knee arthroplasty 10/18/2019 01/08/2021 History of squamous cell carcinoma of skin 01/30/2017 01/08/2021 Overview (06/26/2020): SCC 02/11 left forearm (well differentiated, superficial invasion) Disorder of nervous system d ue to type 2 diabetes mellitus 02/01/2015 01/08/2021 Sebaceous cyst 09/22/2013 01/08/2021 History of malignant basal c ell neoplasm of skin 05/28/2012 01/08/2021 Overview (06/26/2020): BCC 02/11 back (superficial) 01/11 right chest wall (nodular) 06/13 right forearm (infiltrative with metatypical features) 05/10 left preauricular area (nodular) Non-alcoholic fatty liver 08/15/2011 Arthritis 08/14/2011 01/08/2021 Overview (06/26/2020): Arthritis - Acromioclavicular Morbid obesity 07/03/2011 01/08/2021 Sciatica 07/16/2009 01/08/2021 Anxiety disorder 03/11/2008 01/08/2021 Hyperlipidemia 03/11/2008 01/08/2021 Shoulder pain 03/11/2008 01/08/2021 Overview (06/26/2020): Right shoulder surgery x 3 Shoulder pain Disorder due to work-related activity accident 02/24/2004 01/10/2022 Immunizations Name Administration Dates Next Due Influenza Split High Dose Pr eservative Free IM 02/14/2022,02/01/2021,01/19/2020,01/25,01/14/2018,02/01/2017,02/04/2015 ,01/17/2015 Influenza TIV (IM) 02/04/2015, 4,01/29/2013,02/17,02/14/2010,02/08/2009,03/11/2008 Moderna SARS-COV-2 02/14/2022 Pfizer SARS-COV-2 02/01/2021,08/04/2020,07/15/19 21 Pneumococcal Conjugate 13-Valent 10/13/2015 Pneumococcal Polysaccharide 01/14/2018, 3,07/28/2011 Shingrix 04/25/2019,01/25/2019 Tdap 08/09/2015,06/23/2012 Family History Medical History Relation Comments Diabetes Father Heart disease Father Hypertension Father Hypertension Mother Stroke Mother Relation Status Comments Father Mother Social History Tobacco Use Types Packs/Day Years Used Date Smoking Tobacco: Never Smokeless Tobacco: Never Tobacco Cessation:Counseling Given: Not Answered Alcohol Use Standard Drinks/Week Comments No 0 (1 standard drink = 0.6 oz pur e alcohol) Sex and Gender Information Value Date Recorded Sex Assigned at Not on file Legal Sex Male 5:03 PM EST Gender Identity Not on file Sexual Orientation Not on file Last Filed Vital Signs Vital Sign Reading Time Taken Comments Blood Pressure 134/80 12/16/2022 3:43 PM EDT Pulse 73 12/16/2022 3:43 PM EDT Temperature - - Respiratory Rate - - Oxygen Saturation 95% 01/10/2022 2:16 PM EDT Inhaled Oxygen Concentration - - Weight 117 kg (258 lb) 12/16/2022 3:43 PM EDT Height 180.3 cm (5' 11 ) 12/14/2019 12:00 PM EDT Body Mass Index 35.98 12/14/2019 12:00 PM EDT Plan of Treatment Health Maintenance Due Date Last Done Comments Diabetes: Ophthalmology Exam 05/26/2020 Diabetes: Pedal Pulse Checked 05/26/2020 Diabetes: Sensory Foot Exam 05/26/2020 Diabetes: Visual Foot Exam 05/26/2020 Diabetes: Hemoglobin A1C 01/16/2023 023, 06/05/2022, 05/16/2021, Additional history exists Influenza Vaccine (#1) 2023 2, 02/01/2021, 01/19/2020, Additional history exists Pneumococcal Vaccine: 65+ Years Completed 01/14/2018, 10/13/2015, 01/29/2013, Additional history exists Hepatitis B Vaccine Aged Out No longe r eligible based on patient's age to complete this topic Insurance [facility]IC[facility] Care Teams Vc++ Developer Relationship Specialty Start Date End Date Lesli Barry MD PCP - General Internal Medicine 01/08/21
--- OUTSIDE RECORDS SUMMARY | 2024-05-25 13:29 | XMS_ITS ---
Author Organization [facility] Address [address] [address] Care Team Providers Care Fertilizing Machine Operator Name Role Phone Lesli Barry Primary Care Provider RADHA Phipps Unavailable [phone] Allergies Allergen (clinical drug ingredient) Drug/Non Drug Allergy documented on EMR Reaction Allergy Type Onset Date Status Substance with penicillin structure and antibacterial mechanism of action (substance) Penicillins Unknown Drug Allergy Active REASON FOR VISIT 3 month f/u Medications Medication SIG (Take, Route, Frequency, Duration) Notes Start Date End Date Status SEROquel 200 MG as directed Orally Once a day Active traZODone HCl 100 MG as directed Orally take 50mg by mouth at bedtime Active Simvastatin 20 MG 1 tablet in the evening Orally Once a day Active Catapres 0.1 MG 1 tablet Orally take 1 tablet by mouth twice a day Active Toprol XL 100 MG 1 tablet Orally Once a day Active Effexor 75 mg tabs- 5 tabs in the AM Active oxyCODONE HCl ER 10 MG 1 tablet Orally take 1 tab by mouth 2 times daily as needed(pain) Not-Taking Lidocaine 0.5 % as directed Externally apply topically Not-Taking Pamelor 50 MG as directed Orally take 1 cap by mouth at bedtime Not-Taking Cholecalciferol 1000 unit tabs- Take 1000 tabs by mouth daily Active Topamax 100 MG as directed Orally take 3 tabs po daily and additinal 4 tabs at bedtime(7 tabs total per day) Active Ketoconazole 2 % as directed Externally apply to body folds 1-2 times a day as needed. Active Vasotec 2.5 MG as directed Orally take 2.5 mg by mouth daily Active Vital Signs Weight 269.1 lbs 04/23/2024 Height 5ft 10in in 04/23/2024 BMI 38.61 kg/m2 04/23/2024 Heart Rate 96 /min 04/23/2024 Temperature 97.5 degrees Fahrenheit 04/23/20 Respiratory Rate 20 /min 04/23/2024 Encounters Encounter Location Date Provider Diagnosis [facility] [address] [facility] [address] [place] [address] 04/23/2024 RADHATRI GAMBOA Type 2 diabetes mellitus with other diabetic neurological complication E11.49 ; PVD (peripheral vascular disease) I73.9 ; Ingrown toenail of both feet L60.0 ; Dystrophic nail L60.3 ; Pain in left toe(s) M79.675 and Pain in right toe(s) M79.674 Assessments Encounter Date Diagnosis (ICD Code) Assessment Notes Treatment Notes Treatment Clinical Notes Section Notes 04/23/2024 Type 2 diabetes mellitus with other [...] blood sugar control and the importance of ycTsBP8d of less than 7.0%. I reviewed the signs and symptoms of neuropathy with the patient. 04/23/2024 PVD (peripheral vascular disease) (ICD-10 - I73.9) No change in vascular exam this visit. 04/23/2024 Ingrown toenail of both feet (ICD-10 - L60.0) 04/23/2024 Dystrophic nail (ICD-10 - L60.3) Aseptic trimming of toenails x 10 with a hand nailer, pt tolerated well. Discussed with the patient that routine nail care services are only covered by insurance every 60 days. Pt understands that if they would like to return prior to this time frame, they may have to pay out of pocket. 04/23/2024 Pain in left toe(s) (ICD-10 - M79.675) 04/23/2024 Pain in right toe(s) (ICD-10 - M79.674) Plan Of Treatment Next Appt Details Follow Up: 3 Months, Reason: Provider Name:RADHA GLENNY GAMBOA, 07/23/2024 01:00:00 PM, [address], [address], Progress Notes * Jon ROSAS DOB: [birth year] (78 yo M)Acc No.[id number]:04/23/2024 Patient:?Jon ROSAS Jr Provider:?Radha Gamboa DPM :1945???Age:78 Y???Sex:Male Domenico e:04/23/2024 Address:[address] [place] [address], [facility] Pcp:Lesli Barry Subjective: * Chief Complaints: * ???3 month f/u * HPI: ???Constitutional:?This 78 y/o male presents to my office with a complaint of ingrown toenails and a diabetic foot evaluation. He still has soreness in his knees. He denies any new issues with tingling [...] * Hospitalization/Major Diagno stic Procedure:?right knee replacement 2019back surgery shoulder surgery left knee replacement 03/31/2022 [...] * Allergies:?Penicillinsno[All ergies Verified] Objective: * Vitals:?Wt: 269.1 lbs, Ht: 5 ft 10in, BMI: 38.61 Index, HR: 96 /min, Temp: 97.5 F, RR: 20 /min, Ht-cm: 177.8, Wt-k.06 kg. * Examination: ???General Examination: ???GENERAL: Patient appears well nourished, with NAD. VASCULAR: [...] bilaterally, protective sensation intact 10/10 with 5.07 Hancock David bilaterally, vibratory sensation with tuning fork [...] ROM limited, 1st MPJ ROM limited. SHOES: sneakers. Assessment: * Assessment: 1.?Type 2 diabetes mellitus with other diabetic neurological complication - E11.49 (Primary)???2.?PVD (peripheral vascular disease) - I73.9???3.?Ingrown toenail of both feet - L60.0???4.?Dystrophic nail - L60.3???5. Pain in left toe(s) - M79.675???6.?Pain in right toe(s) - M79.674??? Plan: * Treatment: 2.?PVD (peripheral vascular disease)? Clinical Notes: No change in vascular exam this visit. ?? 3.?Dystrophic nail? Clinical Notes: Aseptic trimming of toenails x 10 with a hand nailer, pt tolerated well. Discussed with the patient [...] Completed true * Provider:?Radha Gamboa DPM Date:? 04/23/2024 Generated for Em reyez/Mehdi/Taraitting on:?05/25/2024 01:28 PM EST History and Physical Notes * HPI (History of Present Illness) Category Sub-Category Detail Notes Category Not es Constitutional This 78 y/o m jaimie presents to my office with a complaint of ingrown toenails and a diabetic foot evaluation. He still has soreness in his knees. He denies any new issues with tingling [...] bilaterally, protective sensation intact 10/10 with 5.07 Hancock David bilaterally, vibratory sensation with tuning fork [...]
--- OUTSIDE RECORDS SUMMARY | 2024-05-25 13:29 | XMS_ITS | Encounter Summary ---
Author Organization [facility] Address [address] [place] [address] Care Team Providers Care Cnc Milling Machine Operator Name Role Phone Lesli Barry MD Primary Care Provider [phone] Reason for Visit * Reason Comments Hypertension Hyperlipidemia Diabetes Fsbs 127 Encounter Details Date Type Department Care Team (Late st Contact Info) Description 04/26/2024 3:45 PM EST Office Visit Adult Medicine [facility] [address] [place] [address] Lesli Barry MD [address] [place] [address] Type 2 diabetes mellitus with diabetic microalbuminuria, without long-term current use of insulin ([facility]) (Primary Dx); Microalbuminuria; Primary hypertension; Other hyperlipidemia Social History Tobacco Use Types Packs/Day Years [...] file Not on file Not on file documented as of this encounter Last Filed Vital Signs Vital Sign Reading [...] Mass Index 38.48 04/26/2024 3:44 PM EST documented in this encounter Progress Notes * Lesli Barry MD - 04/26/2024 3:45 PM EST Chief Complaint: Chief Complaint Patient presents with Hypertension Hyperlipidemia Diabetes Fsbs 127 IDENTIFIER: Jon Guillory Jr is a 78 y.o. old male HPI He comes for evaluation with tlj-[id number]-[id number] diabetes with proteinuria, hypertension, elevated cholesterol. He is following ongoing with behavioral health for anxiety and depression and continues on Abilify, nortriptyline, Seroquel, Topamax, venlafaxine and trazodone, is continuing on metformin for diabetes control as well as enalapril, clonidine and Toprol for blood pressure control. He istrying to be consistent on a low-cholesterol and low sugar diet. He has been feeling well. His lastglycohemoglobin was 7.7. Fasting sugar today was 127. ROS: General: No malaise, significant weight loss or fever Respiratory: No cough, wheezing or shortness of breath Cardiovascular: No chest pain, palpitations, no orthopnea Endo no polyuria or polydipsia Past Medical History: Patient Active Problem List Diagnosis Date Noted Morbid obesity with BMI of 40.0-44.9, adult ([facility]) 03/16/2024 COVID-19 virus infection 05/08/2021 DM (diabetes mellitus), type 2 with renal complications ([facility]) 02/07/2020 Microalbuminuria 02/07/2020 Total knee replacement status 10/18/2019 Diabetes mellitus type 2 with neurological manifestations ([facility]) 02/01/2015 Fatty liver disease, nonalcoholic 08/15/2011 Sciatica 07/16/2009 Anxiety disorder 03/11/2008 Hyperlipidemia 03/11/2008 Hypertension 03/11/2008 Shoulder pain 03/11/2008 Surgical History: Past Surgical History: Procedure Laterality Date BACK SURGERY 1999 : Dr. Rivera CATARACT EXTRACTION Bilateral 2019 SHOULDER SURGERY Right 2004, 2004 Family History: Family History Problem Relation Name Age of Onset Hypertension Mother stroke Hypertension Father DM Social History: Social History Tobacco Use Smoking status: Former Current packs/day: 0.00 Types: Cigarettes Quit date: 04/28/1992 Years since quittin.0 Smokeless tobacco: Never Substance Use Topics Alcohol use: No Allergies: Penicillin g potassium Medications: Outpatient Medications Marked as Taking for the 04/26/24 encounter (Office Visit) with Lesli Barry MD Medication Sig Dispense Refill ARIPiprazole (ABILIFY) 2 mg tablet Take 0.5 Tablets by mouth daily. cetirizine (ZyrTEC) 10 mg tablet Take 1 Tablet by mouth daily. cholecalciferol (VITAMIN D-3) 25 mcg (1,000 unit) tablet Take 1,000 Tabs by mouth daily. cloNIDine (CATAPRES) 0.1 mg tablet Take 1 tablet (0.1 mg total) by mouth every 12 (twelve) hours. 180 tablet 0 enalapril (VASOTEC) 2.5 mg tablet Take 1 tablet (2.5 mg total) by mouth 1 (one) time each day. ketoconazole (NIZORAL) 2 % cream APPLY TO GROIN AND AXILLA TWICE DAILY lancets 33 gauge misc Inject 1 Stick into the skin daily. Use to check blood sugar once daily metFORMIN (GLUCOPHAGE) 500 mg tablet Take 2 tablets (1,000 mg total) by mouth 2 (two) times a day with meals. 360 tablet 0 metoprolol succinate (TOPROL-XL) 100 mg 24 hr tablet Take 1 Tablet by mouth daily. nortriptyline (PAMELOR) 50 mg capsule Take 2 Capsules by mouth at bedtime. B.H. OneTouch Ultra Test test strip Test blood sugar once daily prednisoLONE acetate (PRED FORTE) 1 % ophthalmic suspension Administer 1 drop into the left eye 4 (four) times a day. QUEtiapine (SEROquel) 200 mg tablet Take 1 tablet by mouth. simvastatin (ZOCOR) 20 mg tablet Take 1 Tablet by mouth at bedtime. topiramate (TOPAMAX) 100 mg tablet Take 1 Tablet by mouth daily. traZODone (DESYREL) 100 mg tablet Take 1 tablet by mouth at bedtime. venlafaxine 150 mg 24 hr tablet Take 1 tablet (150 mg total) by mouth 1 (one) time each day with breakfast. venlafaxine 225 mg 24 hr tablet 1 tablet (225 mg total) 1 (one) time each day with breakfast. Medication Discontinued/Reordered: There are no discontinued medications. Vitals: Blood pressure 134/62, pulse 85, temperature 35.6 ??C (96.1 ??F), temperature source Temporal, resp. rate 18, height 1.778 m (70 ), weight 122 kg (268 lb 3.2 oz), SpO2 98%. Body mass index is 38.48 kg/m??.BMI is greater than 25.0 (above the normal range) - see Plan Physical Exam: General: patient is in no acute distress. Neck supple without adenopathy, no thyromegaly. Lungs clear with auscultation. Heart: regular S1S2 without murmur, rub or gallop. Extremities without cyanosis, clubbing or edema. Labs: Glycohemoglobin ordered Lab Results Component Value Date CHOL 133 09/17/2023 TRIG 263 (A) 09/17/2023 HDL 50 09/17/2023 Impression: 1. Type 2 diabetes mellitus with diabetic microalbuminuria, without long-term current use of insulin ([facility]) 2. Microalbuminuria 3. Primary hypertension 4. Other hyperlipidemia Assessment and Plan: He is encouraged to continue on weight loss efforts. His blood pressure remains controlled with theenalapril and Toprol and he will continue with simvastatin for his cholesterol as well as diabetes control with the metformin. We did discuss if his glycohemoglobin is continuing to climb that we need to adjust his regimen and add in further medications for the diabetes. He is up-to-date with vaccines including RSV. He will return in 4 months, sooner if needed. Myself and my colleagues have maintained a long-term, longitudinal relationship with this patient, overseeing care of chronic conditions including diabetes, hypertension, elevated cholesterol, proteinuria. This care relationship has significantly influenced my decision making and treatment plans during today's encounter. documented in this encounter Plan of Treatment Upcoming Encounters Date Type Department Care Team (Late st Contact Info) Description 09/30/2024 2:00 PM EDT Office Visit Adult Medicine [facility] [address] [place] [address] Lesli Barry MD [address] [place], [place] documented as of this encounter Results * (ABNORMAL) Hemoglobin A1c (05/04/2024 2:08 PM EST) Hemoglobin A1C 7.2(H) <6.5 % LAB CHEMISTRY METHOD 05/04/2024 9:53 PM EST [facility] Mean Bld Glu Estim. 160 mg/dL LAB CHEMISTRY METHOD 05/04/2024 9:53 PM EST [facility] Blood Venous blood specimen / Unknown Venipuncture / Unknown 05/04/2024 2:08 PM EST 05/04/2024 2:08 PM EST Lesli Barry MD LAB BLOOD ORDERABLES [facility] [address] [place] [address], documented in this encounter Visit Diagnoses Diagnosis Type 2 diabetes mellitus with diabetic microalbuminuria, without long-term current use of insulin ([facility])- Primary Microalbuminuria Proteinuria Primary hypertension Unspecified essential hypertension Other hyperlipidemia documented in this encounter Care Teams Cnc Milling Machine Operator Relationship Specialty Start Date End Date Lesli Barry MD [address] [place] [id number] PCP - General Internal Medicine 11/01/19 documented as of this encounter
[2024-05-25 18:05] LABS: Anion Gap 15 (12-20); Blood Urea Nitrogen 10 mg/dL (9-16); Carbon Dioxide 28 mmol/L (22-29); Chloride 100 mmol/L (96-108); Estimated Glomerular Filt Rate > 60; Potassium 4.9 mmol/L (3.3-5.1); Sodium 138 mmol/L (135-145)
== END 2024-05-25 12:36 | disposition home or self-care (01) ==
LOC: HO.HKASLDS 12:35
PROVIDERS: Visit Provider Internal Medicine Nephrology
DX: N18.31 Chronic kidney disease, stage 3a (principal); I10 Essential (primary) hypertension
CPT/HCPCS: 36415; 80051; 82310; 82565; 84520

== ENCOUNTER 2024-06-01 10:53 | Outpatient (AMB) | payer BC, MEDICARE, SELFPAY ==
--- NOTE | 2024-06-01 11:15 | HO.NEPHOV ---
Vital Signs 06/01/24 11:16 Height 5 ft 10 in Weight 269 lb BMI 38.6 BP 130/80 Blood Pressure Location Lt brachial Position Sitting Pulse 82 Pulse Source Pulse Oximeter Pulse Oximetry (%) 96 Oxygen Delivery Method Room Air Intake Visit Reasons: 6 mo fu w/ labs CKD-Conf Information Clerk Brokerage Required: No Accompanied by: Self / Same As Patient Allergies Penicillins Allergy (Verified 06/01/24 11:16) Unknown HPI Comments Details: Jon was seen in follow-up of his hypertension. He does not take any nonsteroidal anti-inflammatories for it. His blood pressure control is optimal and his sugars are under control. He denies any orthostatic symptoms, chest pain, shortness of breath, nausea, vomiting, diarrhea, pedal edema or urinary symptoms. He has not had any medication changes or hospitalizations. He feels well. All the systems were reviewed and were negative. [facility] Medical History (Updated 11/13/23 @ 12:21 by REJI Shaikh) Skin lesion (~10/2023) Type 2 diabetes mellitus Hypertension CKD (chronic kidney disease) stage 3, GFR 30-59 ml/min Surgical History History of total right knee replacement History of left knee replacement History of shoulder surgery History of back surgery Social History Alcohol intake: never Patient Tobacco Use Status: Never used Tobacco Review of Systems Const All systems reviewed & are unremarkable except as noted in HPI and below Physical Exam Vital Signs: Last Vital Signs Pulse 82 06/01/24 11:16 BP 150/80 H 06/01/24 11:16 Pulse Ox 96 06/01/24 11:16 Oxygen Delivery Method Room Air 06/01/24 11:16 BMI result Body Mass Index 38.6 Const General: comfortable and no acute distress Orientation/consciousness: patient oriented x3 HEENT Head: Yes normocephalic Mouth: Normal oral and palatal mucosa present Eyes EOM: EOMs intact bilaterally Neck Neck: Yes supple Resp Auscultation: clear to auscultation bilaterally Cardio Jugular venous distension: no JVD Rate: regular rate GI Palpation (GI): Soft to palpation Auscultation: normal bowel sounds General: Yes no CVA tenderness Back/Spine/Pelvis Back: no CVA tenderness Skin General skin exam: no rashes or lesions noted Neuro General: patient oriented x3 and moves all extremities Extrem General: Yes no pedal edema Results Reviewed Nephrology Results: Sodium 138 mmol/L (135-145) 05/25/24 Potassium 4.9 mmol/L (3.3-5.1) 05/25/24 Chloride 100 mmol/L (96-108) 05/25/24 Carbon Dioxide 28 mmol/L (22-29) 05/25/24 BUN 10 mg/dL (9-16) 05/25/24 Creatinine 1.02 mg/dL (0.5-1.4) 05/25/24 Calcium 9.0 mg/dL (8.4-10.2) 05/25/24 Urine Creatinine 101.80 mg/dL 11/11/23 Protein/Creatinin Ratio 0.19 (<0.2) 11/11/23 Assessment & Plan Assessment & Plan (1) Hypertension: Code(s): I10 - Essential (primary) hypertension Category: Medical Qualifiers: Hypertension type: primary hypertension Qualified Code(s): I10 - Essential (primary) hypertension (2) CKD (chronic kidney disease) stage 2, GFR 60-89 ml/min: Code(s): N18.2 - Chronic kidney disease, stage 2 (mild) Category: Medical Plan oJn has mild CKD. His renal functions are close to baseline. He has no significant proteinuria. His blood pressure is at goal. He is tolerating current dose of NELLI-inhibitor well. He maintains good hydration. He avoids nonsteroidal anti-inflammatories. His serum potassium has been normal. He should be on a low-sodium diet. He should continue to take regular exercise. I did not make any medication changes today. All his questions were answered. Orders: Orders Creatinine 6 Months I10 - Essential (primary) hypertension, N18.2 - Chronic kidney disease, stage 2 (mild) Blood Urea Nitrogen 6 Months I10 - Essential (primary) hypertension, N18.2 - Chronic kidney disease, stage 2 (mild) Electrolytes 6 Months I10 - Essential (primary) hypertension, N18.2 - Chronic kidney disease, stage 2 (mild) Coding Level of Care Code Est Pt Level 4 (76054) Diagnoses Primary hypertension I10 Hypertension type: primary hypertension CKD (chronic kidney disease) stage 2, GFR 60-89 ml/min N18.2
[2024-06-01 11:16] VITALS: BP 130/80; PULSE 82; O2SAT 96; BMI 38.6
--- OUTSIDE RECORDS SUMMARY | 2024-06-01 11:47 | XMS_ITS | Clinical Summary ---
Author Organization [facility] [address] [place] [address] [place] [phone] Phone Care Team Providers Care Director Of Learning Name Role Phone Lesli Barry MD Primary Care Provider [phone] Allergies Active Allergy Reactions Criticality Noted Date [...] 3:45 PM EST Office Visit Adult Medicine [address] [phone] Lesli Barry MD Type 2 diabetes mellitus with diabetic microalbuminuria, without long-term current use of insulin ([facility]) (Primary Dx); Microalbuminuria; Primary hypertension; Other hyperlipidemia [...] mellitus type 2 wit h neurological manifestations ([facility]) 02/01/2015 History of basal cell carcinoma 05/28/2012 BCC 02/11 back (superficial) 01/11 right chest wall (nodular) 06/13 right forearm (infiltrative with metatypical features) 05/10 left preauricular area (nodular) History of squamous cell car cinoma of 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 (well differentiated, superficial invasion) DM (diabetes mellitus), type 2 with renal complications ([facility]) 02/07/2020 Microalbuminuria 02/07/2020 COVID-19 virus infection 05/08/2021 [...] 2:00 PM EDT Office Visit Adult Medicine [address] [phone] Lesli Barry MD [address] [place] [id number] Health Maintenance Due Date Last Done Comments [...] microalbuminuria, without long-term current use of insulin ([facility]) DEPRESSION SCREENING Routine 01/19/2024 ANNUAL BMP BLOOD TEST Routine 01/19/2024 DIABETES FOOT EXAM Routine 10/13/2023 LIPID PANEL Routine 09/17/2023 FALLS RISK ASSESSMENT Routine 05/19/2023 URINE ALBUMIN CREATININE RATIO Routine 05/19/2023 HEPATITIS C SCREENING Routine 09/29/2012 from Last 3 Months or Most Recently Relevant to Health Maintenance Results * (ABNORMAL) Hemoglobin A1c (05/04/2024 2:08 PM EST) [facility] Hemoglobin A1C 7.2(H) <6.5 % LAB CHEMISTRY METHOD 05/04/2024 9:53 PM EST [facility] Mean Bld Glu Estim. 160 mg/dL LAB CHEMISTRY METHOD 05/04/2024 9:53 PM EST [facility] Blood Venous blood specimen / Unknown Venipuncture / Unknown 05/04/2024 2:08 PM EST 05/04/2024 2:08 PM EST Lesli Barry MD LAB BLOOD ORDERABLES [facility] [address] [place] [address], * Annual BMP Blood Test (01/19/2024) [facility] Annual BMP Blood Test abstracted Historical Provider MD SINAI DÍAZ E * Depression Screening (01/19/2024) [facility] Depression Screening abstracted Historical Provider [facility] * Diabetes Foot Exam (10/13/2023) [facility] Diabetes: Annual Foot Exam abstracted Historical Provider [facility] SVENJENNA E * (ABNORMAL) Lipid panel (09/17/2023) [facility] LDL/HDL Ratio 3 0 - 4 Triglycerides 263(A) 0 - 150 mg/dL Cholesterol 133 0 - 200 mg/dL HDL 50 40 mg/dL LDL Cholesterol 31 0 - 100 mg/dL Blood Venous blood specimen / Unknown Historical Provider LAB BLOOD ORDERAB [facility] Urine Albumin Creatinine Ratio (05/19/2023) [facility] Urine Albumin Creatinine Ratio abstracted [facility] Provider [facility] * Falls Risk Assessment (05/19/2023) [facility] Falls Risk Assessment abstracted Historical Provider [facility] * Hepatitis C Screening (09/29/2012) [facility] Hepatitis C Screening abstracted [facility] Provider [facility] from Last 3 Months or Most Recently Relevant to Health Maintenance Care Teams Director Of Learning Relationship Specialty Start Date End Date Lesli Barry MD [address] [place] [address] PCP - General Internal Medicine 11/01/19
--- OUTSIDE RECORDS SUMMARY | 2024-06-01 11:47 | XMS_ITS | Clinical Summary ---
Author Organization [facility] Address [address] [facility] [address] [place] [address] Phone Care Team Providers Care Deblocker Name Role Phone Lesli Barry MD Primary Care Provider [phone] Allergies Active Allergy Reactions Criticality Noted Date [...] age to complete this topic Insurance MEDICARE [facility] MEDICARE Care Teams Deblocker Relationship Specialty Start Date End Date Lesli Barry MD PCP - General Internal Medicine 01/08/21
== END 2024-06-01 11:49 | disposition home or self-care (01) ==
PROVIDERS: PCP Internal Medicine; Visit Provider Internal Medicine Nephrology
DX: I12.9 Hypertensive chronic kidney disease with stage 1 through stage 4 chronic kidney disease, or unspecified chronic kidney disease (principal); N18.2 Chronic kidney disease, stage 2 (mild)
CPT/HCPCS: 99214

== ENCOUNTER → 2024-06-01 10:53 | Outpatient (BNVA) | payer BC, MEDICARE, SELFPAY | PROVIDERS: PCP Internal Medicine; Visit Provider Internal Medicine Nephrology | DX: I10 Essential (primary) hypertension (principal); N18.31 Chronic kidney disease, stage 3a ==

== ENCOUNTER 2025-01-06 09:52 | Outpatient (AMB) | payer BC, MEDICARE, SELFPAY ==
--- NOTE | 2025-01-06 09:55 | HO.NEPHOV_ITS ---
Vital Signs 01/06/25 10:02 Height 5 ft 10 in Weight 251 lb 6 oz BMI 36.1 BP 130/82 Blood Pressure Location Lt brachial Position Sitting Intake Visit Reasons: Follow up 6mo-Conf Surveyor Instrument Assistant Required: No Accompanied by: Self / Same As Patient Allergies Penicillins Allergy (Verified 01/06/25 10:01) Unknown HPI Comments Details: Jon was seen in follow-up of his hypertension. He does not take any nonsteroidal anti-inflammatories for it. His blood pressure control is optimal and his sugars are under control. He denies any orthostatic symptoms, chest pain, shortness of breath, nausea, vomiting, diarrhea, pedal edema or urinary symptoms. He has not had any medication changes or hospitalizations. He feels well. All the systems were reviewed and were negative. [facility] Medical History (Updated 01/06/25 @ 10:29 by Dilip Goodman MD) Skin lesion (~10/2023) Type 2 diabetes mellitus Hypertension CKD (chronic kidney disease) stage 3, GFR 30-59 ml/min Surgical History History of total right knee replacement History of left knee replacement History of shoulder surgery History of back surgery Social History Alcohol intake: never Patient Tobacco Use Status: Never used Tobacco Review of Systems Const All systems reviewed & are unremarkable except as noted in HPI and below Physical Exam Const General: comfortable and no acute distress Orientation/consciousness: patient oriented x3 HEENT Head: Yes normocephalic Mouth: Normal oral and palatal mucosa present Eyes EOM: EOMs intact bilaterally Neck Neck: Yes supple Resp Auscultation: clear to auscultation bilaterally Cardio Jugular venous distension: no JVD Rate: regular rate Heart sounds: Murmur heart sound present GI Palpation (GI): Soft to palpation Auscultation: normal bowel sounds General: Yes no CVA tenderness Back/Spine/Pelvis Back: no CVA tenderness Skin General skin exam: no rashes or lesions noted Neuro General: patient oriented x3 and moves all extremities Extrem General: Yes no pedal edema Results Reviewed Nephrology Results: Sodium, (135-145) 138 mmol/L 05/25/24 Potassium, (3.3-5.1) 4.9 mmol/L 05/25/24 Chloride, (96-108) 100 mmol/L 05/25/24 Carbon Dioxide, (22-29) 28 mmol/L 05/25/24 BUN, (9-16) 10 mg/dL 05/25/24 Creatinine, (0.5-1.4) 1.02 mg/dL 05/25/24 Calcium, (8.4-10.2) 9.0 mg/dL 05/25/24 Protein/Creatinin Ratio, (<0.2) 0.19 11/11/23 Assessment & Plan Assessment & Plan (1) Hypertension: Code(s): I10 - Essential (primary) hypertension Category: Medical Qualifiers: Hypertension type: primary hypertension Qualified Code(s): I10 - Essential (primary) hypertension (2) CKD (chronic kidney disease) stage 3, GFR 30-59 ml/min: Code(s): N18.30 - Chronic kidney disease, stage 3 unspecified Category: Medical Qualifiers: Chronic kidney disease stage 3 subtype: stage 3a (GFR 45-59) Qualified Code(s): N18.31 - Chronic kidney disease, stage 3a (3) Erectile dysfunction: Code(s): N52.9 - Male erectile dysfunction, unspecified Category: Medical Qualifiers: Erectile dysfunction type: unspecified Qualified Code(s): N52.9 - Male erectile dysfunction, unspecified Plan Jon has mild CKD. His renal functions are close to baseline. He has no significant proteinuria. His blood pressure is at goal. He is tolerating current dose of NELLI-inhibitor well. He maintains good hydration. He avoids nonsteroidal anti-inflammatories. His serum potassium has been normal. He should be on a low-sodium diet. He should continue to take regular exercise. I prescribed him sildanefil for ED. I did not make any other medication changes today. All his questions were answered. Orders: Orders Protein Creatinine Ratio, Ur 7 Months I10 - Essential (primary) hypertension, N18.31 - Chronic kidney disease, stage 3a Creatinine 7 Months I10 - Essential (primary) hypertension, N18.31 - Chronic kidney disease, stage 3a Blood Urea Nitrogen 7 Months I10 - Essential (primary) hypertension, N18.31 - Chronic kidney disease, stage 3a Electrolytes 7 Months I10 - Essential (primary) hypertension, N18.31 - Chronic kidney disease, stage 3a Medications: New sildenafil (Viagra) administer 30 minutes to 4 hours before activity 50 mg PO DAILY PRN 3 tabs 10RF sexual activity 3 days Coding Level of Care Code Est Pt Level 4 (15858) Diagnoses Primary hypertension I10 Hypertension type: primary hypertension Stage 3a chronic kidney disease N18.31 Chronic kidney disease stage 3 subtype: stage 3a (GFR 45-59) Erectile dysfunction, unspecified erectile dysfunction type N52.9 Erectile dysfunction type: unspecified
[2025-01-06 10:02] VITALS: BP 130/82; BMI 36.1
--- OUTSIDE RECORDS SUMMARY | 2025-01-06 11:41 | XMS_ITS | Clinical Summary ---
Author Organization [facility] Address [address] [place] [phone] Phone Care Team Providers Care Data Designer Name Role Phone Lesli Barry MD Primary Care Provider [phone] Allergies Active Allergy Reactions Criticality Noted Date Comments Penicillins Unknown 09/13/2005 Medications HYDROcodone-malaika taminophen (VICODIN) 5-500 mg per tablet Take 1-2 tablets by mouth as directed. Reported on 09/09/2016 06/09/2007 Active metoprolol tartrate (LOPRESSOR) 100 MG tablet Take 100 mg by mouth 2 (two) times a day. Active cloNIDine HCl (CATAPRES) 0.1 MG tablet Take 0.1 mg by mouth 2 (two) times a day. Active QUEtiapine (SEROQUEL) 200 MG tablet Take 200 mg by mouth nightly. Active venlafaxine (EFFEXOR-XR) 75 MG 24 hr capsule Take 75 mg by mouth daily. Active risperiDONE (RISPERDAL) 0.25 MG tablet Take 0.25 mg by mouth 2 (two) times a day. Reported on 09/09/2016 Active nortriptyline (PAMELOR) 50 MG capsule Take 50 mg by mouth nightly. Active simvastatin (ZOCOR) 20 MG tablet Take 20 mg by mouth nightly. Reported on 09/09/2016 Active enalapril (VASOTEC) 2.5 MG tablet Take 2.5 mg by mouth daily. Active oxyCODONE (OXYCONTIN) 10 MG 12 hr tablet Take 10 mg by mouth every 12 (twelve) hours. Active topiramate (TOPAMAX) 100 MG tablet Take 100 mg by mouth 2 (two) times a day. Active traZODone (DESYREL) 100 MG tablet Take 100 mg by mouth nightly. Active metFORMIN (GLUCOPHAGE) 500 MG tablet 10/16/2022 Activ e cetirizine (ZYRTEC) 10 MG tablet Take 1 tablet by mouth daily. 04/10/2022 Active ARIPiprazole (ABILIFY) 2 MG tablet Take 0.5 tablets by mouth daily. 04/11/2022 Active Active Problems Problem Noted Date Diagnosed Date Shoulder pain 09/20/2014 Overview (04/04/2015): Shoulder pain Arthritis 08/14/2011 Overview (06/17/2014): Arthritis - Acromioclavicular Social History Tobacco Use Types Packs/Day Years Used Date Smoking Tobacco: Former Education Answer Date Recorded Are you interested in more education? Not on surya e 08/22/2022 Are you concerned about learning? Not on file 08/22/2022 No 08/22/2022 No 08/22/2022 Digital Access Answer Date Recorded No 09/23/2022 No 09/23/2022 No 09/23/2022 Reliable internet access at home? Not on file 09/23/2022 Device with a working camera? Not on file Sex and Gender Information Value Date Recorded Sex Assigned at Male 10/18/2022 11:06 AM EDT Legal Sex Male 7:41 PM EST Gender Identity Male 10/18/2022 11:06 AM EDT Sexual Orientation Straight 10/18/2022 11 :06 AM EDT Last Filed Vital Signs Vital Sign Reading Time Taken Comments Blood Pressure - - Pulse - - Temperature - - Respiratory Rate - - Oxygen Saturation - - Inhaled Oxygen Concentration - - Weight 126.1 kg (278 lb) 08/30/2024 11:55 AM EDT Height 177.8 cm (5' 10 ) 08/30/2024 11:55 AM EDT Body Mass Index 39.89 08/30/2024 11:55 AM EDT Plan of Treatment Health Maintenance Due Date Last Done Comments CREATININE LEVEL 1947 POTASSIUM LEVEL 1947 DEPRESSION SCREENING 1959 SMOKING Hx and SMOKELESS TOBACCO SCREENING 08/15/1960 HEPATITIS C SCREENING 08/15/1965 ZOSTER VACCINES (1 of 2) 08/15/1997 PNEUMOCOCCAL VACCINES (50+ years) (2 of 2 - PCV) 01/14/2019 01/14/2018 RSV VACCINE (1 - 1-dose 75+ series) 08/15/2022 INFLUENZA VACCINE (#1) 2024 8, 02/01/2017 COVID-19 VACCINE (1 - 2023-2 5 season) 2024 Adult Td,Tdap Booster 08/08/2025 08/09/2015 , 06/23/2012 LIPID PANEL 09/16/2028 09/17/2023, 10/04/2020 HEPATITIS A VACCINES Aged Out No long er eligible based on patient's age to complete this topic HIB VACCINES Aged Out No longer eligi ble based on patient's age to complete this topic MENINGOCOCCAL VACCINES (ACWY) Aged Out No longer eligible based on patient's age to complete this topic MENINGOCOCCAL VACCINES (B) Aged Out N o longer eligible based on patient's age to complete this topic Medical Devices Not on file Insurance MEDICARE PART A & B [facility] [[email or web address] MEDICARE PART A & B [facility] [[email or web address]] MEDICARE PART A & B [facility] [[email or web address]] MEDICARE PART A & B [employer] [facility] [place] MED[place] PART A & B [facility] [[email or web address]] MEDICARE PART A & B [facility] [[email or web address] MEDICARE PART A & B [facility] [[email or web address]] MEDICARE PART A & B [facility] [[email or web address]] MEDICARE PART A & B Member Subscriber Plan / Payer (Ef fective 2008-Present) Name:oJn Rosas Member ID:[id number] Relation to Subscriber:Self Name:Jon Rosas Kate Subscriber ID:[id number] Payer ID:[id number] Group ID:Not on file Type:Medicare Address: [employer] [facility]. [address] [place] [address] [facility] FEDERAL FEDERAL Advance Directives For more information, please contact: [phone] (9AM - 5PM [facility], Friday-Friday) Documents on File Type Date Recorded Patient Manager Intensive Care Unit Expl anation Advance Directive - Non Epic LMR 04/01/2007 12:00 AM Care Teams Data Designer Relationship Specialty Start Date End Date Lesli Barry MD [address] [place] [id number] PCP - General Internal Medicine 10/18/22 Additional Source Comments The information contained in this document represents components of the legal health record. It is not the complete legal health record.[facility]
--- OUTSIDE RECORDS SUMMARY | 2025-01-06 11:41 | XMS_ITS ---
Author Name [facility] Organization Unknown Care Team Organization Name Specialty Phone Email Start Date End Da te [facility] 12/15/2024 [facility] Marta Duarte Primary Care 03/05/202211/26
--- OUTSIDE RECORDS SUMMARY | 2025-01-06 11:41 | XMS_ITS | Patient Health Record ---
Author Organization [facility] Address [address] [address] Care Team Providers Care Environmental Services Specialist Name Role Phone Lesli Barry Primary Care Provider AMRIK Phipps Unavailable [phone] Allergies Allergen (clinical drug ingredient) Drug/Non Drug Allergy documented on EMR Reaction Allergy Type Onset Date Status Substance with penicillin structure and antibacterial mechanism of action (substance) Penicillins Unknown Drug Allergy Active Reason For Referral No Information Medications Medication SIG (Take, Route, Frequency, Duration) Notes Start Date End Date Status Topamax 100 MG as directed Orally take 3 tabs po daily and additinal 4 tabs at bedtime(7 tabs total per day) Active Vasotec 2.5 MG as directed Orally take 2.5 mg by mouth daily Active Ketoconazole 2 % as directed Externally apply to body folds 1-2 times a day as needed. Active Lidocaine-Prilocaine 2.5-2.5 % apply to right and left foot Externally up to 3 times a day; Duration: 30 days 10/25/2024 Active Effexor 75 mg tabs- 5 tabs in the AM Active Cholecalciferol 1000 unit tabs- Take 1000 tabs by mouth daily Active SEROquel 200 MG as directed Orally Once a day Active Lidocaine 0.5 % as directed Externally apply topically Not-Taking Alpha Lipoic Acid 200 MG 1 capsule Orally Once a day; Duration: 30 days 10/25/2024 Active oxyCODONE HCl ER 10 MG 1 tablet Orally take 1 tab by mouth 2 times daily as needed(pain) Not-Taking Toprol XL 100 MG 1 tablet Orally Once a day Active traZODone HCl 100 MG as directed Orally take 50mg by mouth at bedtime Active Pamelor 50 MG as directed Orally take 1 cap by mouth at bedtime Not-Taking Catapres 0.1 MG 1 tablet Orally take 1 tablet by mouth twice a day Active Simvastatin 20 MG 1 tablet in the evening Orally Once a day Active Problems Problem Type SNOMED Code ICD Code Onset Dates Problem Status W/U Status Risk Notes Problem Neurologic disorder associated with type II diabetes mellitus (454109231) Type 2 diabetes mellitus with other diabetic neurological complication (E11.49) Active confirmed Problem Peripheral vascular disease (246522218) PVD (peripheral vascular disease) (I73.9) Active confirmed Vital Signs Heart Rate 95 /min 10/25/2024 Temperature 97.3 degrees Fahrenheit 10/25/2024 Respiratory Rate 16 /min 10/25/2024 Height 5ft 10in in 10/25/2024 Weight 248.2 lbs 10/25/2024 BMI 35.61 kg/m2 10/25/2024 Encounters Encounter Location Date Provider Diagnosis [facility] [address] 01/21/2024 AMRIK NA Type 2 diabetes mellitus with other diabetic neurological complication E11.49 ; PVD (peripheral vascular disease) I73.9 ; Ingrown toenail of both feet L60.0 ; Dystrophic nail L60.3 ; Pain in left toe(s) M79.675 and Pain in right toe(s) M79.674 [facility] [address] 04/23/2024 AMRIK AN Type 2 diabetes mellitus with other diabetic neurological complication E11.49 ; PVD (peripheral vascular disease) I73.9 ; Ingrown toenail of both feet L60.0 ; Dystrophic nail L60.3 ; Pain in left toe(s) M79.675 and Pain in right toe(s) M79.674 [facility] [address] [address] 07/23/2024 AMRIKMAL AN Type 2 diabetes mellitus with other diabetic neurological complication E11.49 ; PVD (peripheral vascular disease) I73.9 ; Ingrown toenail of both feet L60.0 ; Dystrophic nail L60.3 ; Pain in left toe(s) M79.675 and Pain in right toe(s) M79.674 [facility] [address] [place] [address] 10/25/2024 AMRIK AN Type 2 diabetes mellitus with [...] blood sugar control and the importance of [id number] of less than 7.0%. I reviewed the [...] blood sugar control and the importance of [id number] of less than 7.0%. I reviewed the signs and symptoms of neuropathy with the patient. 07/23/2024 Type 2 diabetes mellitus with other diabetic [...] blood sugar control and the importance of [id number] of less than 7.0%. I reviewed the signs and symptoms of neuropathy with the patient. 10/25/2024 Type 2 diabetes mellitus with other diabetic [...] blood sugar control and the importance of [id number] of less than 7.0%. I reviewed the signs and symptoms of neuropathy with the patient. We discussed treatment options for neuropathy. We discussed there is no cure for neuropathy only symptom management. I reviewed topical therapies, i.e. creams and patches. I discussed OTC vitamins that can help with nerve health. I discussed alternative therapies like electric stimulation and acupuncture. I also reviewed oral medication for nerve depression, like gabapentin and Lyrica. He would like to start with the cream and the vitamins first. RX for both sent to his pharmacy. We discussed if no improvement in 1 month to contact my office, and we can try an alternative. He is in agreement with this plan. 10/25/2024 PVD (peripheral vascular disease) (ICD-10 - I73.9) No change in vascular exam this visit. 04/23/2024 PVD (peripheral vascular disease) (ICD-10 - I73.9) No change in vascular exam this visit. 07/23/2024 PVD (peripheral vascular disease) (ICD-10 - I73.9) No change in vascular exam this visit. 01/21/2024 PVD (peripheral vascular disease) (ICD-10 - I73.9) No change in vascular exam this visit. 01/21/2024 Ingrown toenail of both feet (ICD-10 - L60.0) 07/23/2024 Ingrown toenail of both feet (ICD-10 - L60.0) 04/23/2024 Ingrown toenail of both feet (ICD-10 - L60.0) 10/25/2024 Ingrown toenail of both feet (ICD-10 - L60.0) 10/25/2024 Dystrophic nail (ICD-10 - L60.3) Aseptic trimming of toenails x 10 with a nail puller, pt tolerated well. Discussed with the patient that routine nail care services are only covered by insurance every 60 days. Pt understands that if they would like to return prior to this time frame, they may have to pay out of pocket. 07/23/2024 Dystrophic nail (ICD-10 - L60.3) Aseptic trimming of toenails x 10 with a nail puller, pt tolerated well. Discussed with the patient that routine nail care services are only covered by insurance every 60 days. Pt understands that if they would like to return prior to this time frame, they may have to pay out of pocket. 01/21/2024 Dystrophic nail (ICD-10 - L60.3) Aseptic trimming of toenails x 10 with a nail puller, pt tolerated well. Discussed with the patient that routine nail care services are only covered by insurance every 60 days. Pt understands that if they would like to return prior to this time frame, they may have to pay out of pocket. 04/23/2024 Dystrophic nail (ICD-10 - L60.3) Aseptic trimming of toenails x 10 with a nail puller, pt tolerated well. Discussed with the patient that routine nail care services are only covered by insurance every 60 days. Pt understands that if they would like to return prior to this time frame, they may have to pay out of pocket. 04/23/2024 Pain in left toe(s) (ICD-10 - M79.675) 01/21/2024 Pain in left toe(s) (ICD-10 - M79.675) 07/23/2024 Pain in left toe(s) (ICD-10 - M79.675) 10/25/2024 Pain in left toe(s) (ICD-10 - M79.675) 10/25/2024 Pain in right toe(s) (ICD-10 - M79.674) 07/23/2024 Pain in right toe(s) (ICD-10 - M79.674) 04/23/2024 Pain in right toe(s) (ICD-10 - M79.674) 01/21/2024 Pain in right toe(s) (ICD-10 - M79.674) Plan Of Treatment Next Appt Details Provider Name:AMRIK AN, 01/26/2025 01:00:00 PM, [address] [facility] [address], [place], [address], Medical (General) History Medical History History ICD [...] in unspecified shoulder M25.519 right knee replacement 2019 left knee replacement 2021 COVID vaccinated X 3 (TBS) Surgical History Surgery Date(Month/Year) knee replacement right 2020 cataract removal bilaterally back surgery basal cell carcinoma excision shoulder surgery squamous cell carcinoma excision left knee replacement 03/31/2022 Hospitalization History Reason Date(Month/Year) left knee replacement 03/31/2022 shoulder surgery back surgery right knee replacement 2019
--- OUTSIDE RECORDS SUMMARY | 2025-01-06 11:41 | XMS_ITS | Clinical Summary ---
Author Organization [facility] [address] [place] [address] [place] [phone] Phone Care Team Providers Care Computer Graphic Designer Name Role Phone Lesli Barry MD Primary Care Provider [phone] Allergies Active Allergy Reactions Criticality Noted Date Comments Penicillin G Potassium 03/11/2008 Medications nortriptyline (PAMELOR) 50 mg capsule Take 2 Capsules by mouth at bedtime. B.H. Active ARIPiprazole (ABILIFY) 2 mg tablet Take 0.5 Tablets by mouth daily. Active ketoconazole (NIZORAL) 2 % cream APPLY TO GROIN AND AXILLA TWICE DAILY 02/01/20 22 Active lancets 33 gauge misc Inject 1 Stick into the skin daily. Use to check blood sugar once daily 02/22/20 22 Active traZODone (DESYREL) 100 mg tablet Take 1 tablet by mouth at bedtime. Active QUEtiapine (SEROquel) 200 mg tablet Take 1 tablet by mouth. Active OneTouch Ultra Test test strip Test blood sugar once daily 12/13/19 20 Active enalapril (VASOTEC) 2.5 mg tablet Take 1 tablet (2.5 mg total) by mouth 1 (one) time each day. Active cholecalcifero l (VITAMIN D-3) 25 mcg (1,000 unit) tablet Take 1,000 Tabs by mouth daily. Active prednisoLONE acetate (PRED FORTE) 1 % ophthalmic suspension Administer 1 drop into the left eye 4 (four) times a day. 03/01/20 24 Active venlafaxine 150 mg 24 hr tablet Take 1 tablet (150 mg total) by mouth 1 (one) time each day with breakfast. 02/02/20 Active venlafaxine 225 mg 24 hr tablet 1 tablet (225 mg total) 1 (one) time each day with breakfast. 02/02/20 24 Active metFORMIN (GLUCOPHAGE) 500 mg tablet TAKE 2 TABLETS BY MOUTH TWICE A DAY WITH FOOD 360 tablet 1 12/02/19 25 Active simvastatin (ZOCOR) 20 mg tablet TAKE 1 TABLET BY MOUTH EVERYDAY AT BEDTIME 90 tablet 1 12/25/19 25 Active metoprolol succinate (TOPROL-XL) 100 mg 24 hr tablet TAKE 1 TABLET BY MOUTH EVERY DAY 90 tablet 1 12/31/19 25 Active cloNIDine (CATAPRES) 0.1 mg tablet TAKE 1 TABLET BY MOUTH EVERY 12 HOURS 180 tablet 1 12/31/19 25 Active metoprolol succinate (TOPROL-XL) 100 mg 24 hr tablet TAKE 1 TABLET BY MOUTH EVERY DAY 90 tablet 1 07/20/19 25 025 Discontinued cloNIDine (CATAPRES) 0.1 mg tablet TAKE 1 TABLET BY MOUTH EVERY 12 HOURS. 180 tablet 1 07/20/19 25 025 Discontinued simvastatin (ZOCOR) 20 mg tablet TAKE 1 TABLET BY MOUTH EVERYDAY AT BEDTIME 90 tablet 09/28/19 25 025 Discontinued Active Problems Problem Noted Date Diagnosed Date Chronic kidney disease, stage 3a ([facility] V24, C [facility] V28) 09/30/2024 Morbid obesity with BMI of 4 0.0-44.9, adult ([facility] V24, [facility] V28) 03/16/2024 COVID-19 virus infection 05/08/2021 Overview (03/23/2024): 1.4.22 DM (diabetes mellitus), type 2 with renal complications ([facility] V24, [facility] V28) 02/07/2020 Microalbuminuria 02/07/2020 Total knee replacement status 10/18/2019 Overview (03/23/2024): bilateral Diabetes mellitus type 2 wit h neurological manifestations ([facility] V24, [facility] V28) 02/01/2015 Fatty liver disease, nonalcoholic 08/15/2011 Sciatica 07/16/2009 Anxiety disorder 03/11/2008 Hyperlipidemia 03/11/2008 Hypertension 03/11/2008 Shoulder pain 03/11/2008 Overview (03/16/2024): Right shoulder surgery x 3 Immunizations Name Administration Dates Next Due Influenza [...] SHOULDER SURGERY 2003, 2004 Right BACK SURGERY 2000 : Dr. Rivrea CATARACT EXTRACTION 2018 Bilateral Medical History Medical History Date Comments Diabetes mellitus type 2 wit h neurological manifestations ([facility]/HCC V24, CMS/[facility] V28) 02/01/2015 History of basal cell carcinoma 05/28/2012 BCC 02/11 back (superficial) 01/11 right chest wall (nodular) 06/13 right forearm (infiltrative with metatypical features) 05/10 left preauricular area (nodular) History of squamous cell car cinoma of 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 (well differentiated, superficial invasion) DM (diabetes mellitus), type 2 with renal complications (CMS/HCC V24, [facility] V28) 02/07/2020 Microalbuminuria 02/07/2020 COVID-19 virus infection 05/08/2021 [...] drink = 0.6 oz pur e alcohol) Housing Instability Answer Date Recorde d Are you worried that in the next 2 months you may not have stable housing? No 09/23/2024 Food Access & Nutrition Answer Date Rec orded Do you have access to a vari ety of food including fruits and vegetables? Yes 09/23/2024 Access to Healthcare Answer Date Record ed Within the last 3 months, ho w many times did you visit the emergency department for your medical care? 0 09/23/2024 Health Literacy Answer Date Recorded How often do you need to hav e someone help you when you read instructions, pamphlets, or other written material from your doctor or pharmacy? Rarely 09/23/2024 Caregiver: How often do you need to have someone help you when you read instructions, pamphlets, or other written material from your doctor or pharmacy? Not on file 09/23/2024 Financial Risk Answer Date Recorded How hard is it for you to pa y for the very basics like food, housing, medical care, and air conditioning / heating? Somewhat hard 09/23/2024 Transportation Answer Date Recorded Has the lack of transportati on kept you from meetings, work, or from getting things needed for daily living? No Has the lack of transportati on kept you from medical appointments or from getting medications? No 09/23/2024 Social Isolation Answer Date Recorded How often do you feel lonely or isolated from those around you? Sometimes 09/23/2024 Food Risk Answer Date Recorded Within the past 12 months we worried whether our food would run out before we got money to buy more. Never true 09/23/2024 Within the past 12 months th e food we bought just didn't last and we didn't have money to get more. Never true 09/23/2024 Dependent Care Answer Date Recorded Do you need help finding or paying for care for your loved ones. For example, child care worker or elderly care for an older adult? No 09/23/2024 Education Answer Date Recorded Do you think completing more education or training, like finishing a GED, going to college, or learning a trade, would be helpful for you? No 09/23/2024 Employment and Income Answer Date Recor ded During the last four weeks, have you been actively looking for work? No 09/23/2024 Living Situation Answer Date Recorded What is your living situation? 0 09/23/2024 Sex and Gender Information Value Date Recorded Sex Assigned at Not on file Legal Sex Male 7:39 AM EST Gender Identity Not on file Sexual Orientation Not on file Obstetrics History Last Filed Vital Signs Vital Sign Reading Time Taken Comments Blood Pressure 122/62 09/30/2024 2:01 PM EDT Pulse 97 09/30/2024 1:47 PM EDT Temperature 36.3 C (97.4 F) 09/30/2024 1:47 PM EDT Respiratory Rate 16 09/30/2024 1:47 PM EDT Oxygen Saturation 94% 09/30/2024 1:47 PM EDT Inhaled Oxygen Concentration - - Weight 117 kg (258 lb 4.8 oz) 09/30/2024 1:47 PM EDT Height 177.8 cm (5' 10 ) 09/30/2024 1:47 PM EDT Body Mass Index 37.06 09/30/2024 1:47 PM EDT Plan of Treatment Upcoming Encounters Date Type Department Care Team (Late st Contact Info) Description 01/31/2025 1:00 PM EDT Office Visit Adult Medicine [facility] [address] [place] [address] Marta Duarte PA [address] [place], [place] Health Maintenance Due Date Last Done Comments RSV Immunization Adult Patients (1 - 1-dose 75+ series) 08/15/2022 03/25/2023 Falls Risk Assessment 05/19/2024 05/19/2023 Diabetes: Annual Foot Exam 10/12/2024 10/13/2023 COVID-19 Vaccine (7 - Pfizer risk 2023- season) 2024 02/20/2024, 01/15/2023, 02/14/2022, Additional history exists Influenza Vaccine (#1) 2024 , 02/14/2022, 02/01/2021, Additional history exists Medicare Annual Wellness Visit 01/18/2025 01/19/2024 Diabetes: Annual Retina Eye Exam 02/23/2025 02/24/2024 Diabetes: Blood Sugar Control Test (HGBA1C) 04/01/2025 09/30/2024, 05/04/2024, 01/19/2024, Additional history exists DTaP,Tdap,and Td Vaccines (3 - Td or Tdap) 08/08/2025 08/09/2015, 06/23/2012 Social Influencers of Health Screening 09/23/2025 09/23/2024 Diabetes: Annual Urine Albumin-Creatinine Ratio (uACR) 09/30/2025 09/30/2024, 05/19/2023 Diabetes: Annual GFR (Glomerular Filtration Rate) 09/30/2025 09/30/2024, 01/19/2024, 01/19/2024 Hypertension/CHF/CAD Annual BMP Blood Test 09/30/2025 09/30/2024, 01/19/2024, 01/19/2024 Cholesterol Screening (Lipid Panel) 09/30/2029 09/30/2024, 09/17/2023, 09/17/2023 Hepatitis C Screening Completed 09/29/2012 Pneumococcal Vaccine: 50+ Years Completed 01/14/2018, 10/13/2015, 01/29/2013 Zoster Vaccines Completed 04/25/2019, 01/25/2019 RSV Immunization Patients Under 20 months Aged Out 03/25/2023 No longer eligible based on patient's age to complete this topic Depression Screening Completed 09/23/2024, 01/19/20 HIB Vaccines Aged Out No longer eligi [...] patient's age to complete this topic Meningococcal B Vaccine Aged Out No l onger eligible based on patient's age to complete this topic Varicella Vaccines Aged Out No longer eligible based on patient's age to complete this topic Procedures Procedure Name Priority Date/Time Associated Diagnosis Comments MICROALBUMIN CREATININE URINE RATIO Routine 09/30/2024 2:24 PM EDT Type 2 diabetes mellitus with diabetic microalbuminuria, without long-term current use of insulin ([facility] V24, [facility] V28) COMPREHENSIVE METABOLIC PANEL Routine 09/30/2024 2:24 PM EDT Type 2 diabetes mellitus with diabetic microalbuminuria, without long-term current use of insulin ([facility] V24, [facility] V28) Primary hypertension HEMOGLOBIN A1C Routine 09/30/2024 2:24 PM EDT Type 2 diabetes mellitus with diabetic microalbuminuria, without long-term current use of insulin ([facility] V24, [facility] V28) LIPID PANEL WITH REFLEX TO DIRECT LDL Routine 09/30/2024 2:24 PM EDT Other hyperlipidemia DEPRESSION SCREENING Routine 01/19/2024 DIABETES FOOT EXAM Routine 10/13/2023 FALLS RISK ASSESSMENT Routine 05/19/2023 HEPATITIS C SCREENING Routine 09/29/2012 from Last 3 Months or Most Recently Relevant to Health Maintenance Results * (ABNORMAL) Lipid panel with reflex to direct LDL (09/30/2024 2:24 PM EDT) [facility] Cholesterol 143 0 - 200 mg/dL LAB CHEMISTRY METHOD 09/30/2024 5:40 PM EDT [facility] Triglycerides 157(H) 0 - 150 mg/dL LAB CHEMISTRY METHOD 09/30/2024 5:40 PM EDT [facility] HDL 65 >=40 mg/dL LAB CHEMISTRY METHOD 09/30/2024 5:40 PM EDT [facility] LDL Calculated 47 0 - 100 mg/dL LAB CHEMISTRY METHOD 09/30/2024 5:40 PM EDT [facility] VLDL Cholesterol Young 31.4 mg/dL LAB CHEMISTRY METHOD 09/30/2024 5:40 PM EDT [facility] Non HDL Chol. (LDL+VLDL) 78 <145 mg/dL LAB CHEMISTRY METHOD 09/30/2024 5:40 PM EDT [facility] Chol/HDL Ratio 2.2 0.0 - 4.4 LAB CHEMISTRY METHOD 09/30/2024 5:40 PM EDT [facility] Blood Venous blood specimen / Unknown Venipuncture / Unknown 09/30/2024 2:24 PM EDT 09/30/2024 2:24 PM EDT us Lesli Barry MD LAB BLOOD ORDERABLES Final Resul t [facility] [address] [place] [address], [place] [phone] * (ABNORMAL) Microalbumin creatinine urine ratio (09/30/2024 2:24 PM EDT) Creatinine, Urine 150.0 mg/dL LAB CHEMISTRY METHOD 09/30/2024 5:45 PM EDT [facility] Microalb, Ur 69.4(H) 0.0 - 29.0 mg/L LAB CHEMISTRY METHOD 09/30/2024 5:45 PM EDT [facility] Microalb/Crea t Ratio 46(H) <30 mg/g creat LAB CHEMISTRY METHOD 09/30/2024 5:45 PM EDT [facility] Urine Urine specimen obtained by clean catch procedure / Unknown Non-blood Collection / Unknown 09/30/2024 2:24 PM EDT 09/30/2024 2:24 PM EDT Lesli Barry MD LAB URINE ORDERABLES Final Resul t Performing Organization Address [facility]/ZIP Co de Phone Number [facility] [address] [place] [address], [place] [phone] * (ABNORMAL) Hemoglobin A1c (09/30/2024 2:24 PM EDT) Hemoglobin A1C 7.0(H) <6.5 % LAB CHEMISTRY METHOD 09/30/2024 10:49 PM EDT [facility] Mean Bld Glu Estim. 154 mg/dL LAB CHEMISTRY METHOD 09/30/2024 10:49 PM EDT [facility] Blood Venous blood specimen / Unknown Venipuncture / Unknown 09/30/2024 2:24 PM EDT 09/30/2024 2:24 PM EDT us Lesli Barry MD LAB BLOOD ORDERABLES Final Resul t Performing Organization Address [facility]/ZIP Co de Phone Number [facility] [address] [place] [address], [place] [phone] * (ABNORMAL) Comprehensive metabolic panel (09/30/2024 2:24 PM EDT) Sodium 142 133 - 145 mmol/L LAB CHEMISTRY METHOD 09/30/2024 5:39 PM EDT [facility] Potassium 4.9 3.5 - 5.5 mmol/L LAB CHEMISTRY METHOD 09/30/2024 5:39 PM EDT [facility] Chloride 107 96 - 110 mmol/L LAB CHEMISTRY METHOD 09/30/2024 5:39 PM EDT [facility] CO2 25 21 - 32 mmol/L LAB CHEMISTRY METHOD 09/30/2024 5:39 PM [facility] Anion Gap 10 3 - 11 LAB CHEMISTRY METHOD 09/30/2024 5:39 PM [facility] Glucose 147(H) 70 - 100 mg/dL LAB CHEMISTRY METHOD 09/30/2024 5:39 PM [facility] BUN 12 5 - 25 mg/dL LAB CHEMISTRY METHOD 09/30/2024 5:39 PM [facility] Creatinine 1.32(H) 0.70 - 1.30 mg/dL LAB CHEMISTRY METHOD 09/30/2024 5:39 PM [facility] eGFR 56(L) >=60 mL/min/1. 73m2 LAB CHEMISTRY METHOD 09/30/2024 5:39 PM [facility] Comment:Calculation based on the Chronic Kidney Disease Epidemiology Collaboration (CKD-EPI) equation refit without adjustment for race. BUN/Creatinine Ratio 9.1 LAB CHEMISTRY METHOD 09/30/2024 5:39 PM [facility] Calcium 8.9 8.5 - 10.5 mg/dL LAB CHEMISTRY METHOD 09/30/2024 5:39 PM [facility] AST (SGOT) 25 10 - 42 unit/L LAB CHEMISTRY METHOD 09/30/2024 5:39 PM [facility] ALT (SGPT) 44 10 - 60 unit/L LAB CHEMISTRY METHOD 09/30/2024 5:39 PM [facility] Alkaline Phosphatase 67 42 - 121 unit/L LAB CHEMISTRY METHOD 09/30/2024 5:39 PM [facility] Total Protein 7.0 6.0 - 8.0 g/dL LAB CHEMISTRY METHOD 09/30/2024 5:39 PM [facility] Albumin 3.8 3.2 - 5.0 g/dL LAB CHEMISTRY METHOD 09/30/2024 5:39 PM [facility] Total Bilirubin 0.4 0.0 - 1.4 mg/dL LAB CHEMISTRY METHOD 09/30/2024 5:39 PM EDT [facility] Blood Venous blood specimen / Unknown Venipuncture / Unknown 09/30/2024 2:24 PM EDT 09/30/2024 2:24 PM EDT Lesli Barry MD LAB BLOOD ORDERABLES Final Resul t [facility] [address] [place] [address], * Depression Screening (01/19/2024) Pathologist [facility] Depression Screening abstracted [facility] Provider HEALTH MAINTENANCE Final Result * Diabetes Foot Exam (10/13/2023) [facility] Diabetes: Annual Foot Exam abstracted [facility] Provider HEALTH MAINTENANCE Final Result * Falls Risk Assessment (05/19/2023) [facility] Falls Risk Assessment abstracted Result [facility] Provider HEALTH MAINTENANCE Final Result * Hepatitis C Screening (09/29/2012) [facility] Hepatitis C Screening abstracted [facility] Provider HEALTH MAINTENANCE Final Result from Last 3 Months or Most Recently Relevant to Health Maintenance Insurance MEDICARE [facility] Care Teams Computer Graphic Designer Relationship Specialty Start Date End Date Lesli Barry MD [address] [place] [address] PCP - General Internal Medicine 11/01/19
--- OUTSIDE RECORDS SUMMARY | 2025-01-06 11:41 | XMS_ITS | Clinical Summary ---
Author Organization [facility] Address [address] [facility] [address] [place] [address] Phone Care Team Providers Care Printing And Stamping Supervisor Name Role Phone Lesli Barry MD Primary Care Provider [phone] Allergies Active Allergy Reactions Criticality Noted Date [...] to work-related activity accident 02/24/2004 01/10/2022 Immunizations Immunization Administration Dates Next Due Influenza Split High [...] 05/16/2021, Additional history exists Influenza Vaccine (#1) 2024 2, 02/01/2021, 01/19/2020, Additional history exists Pneumococcal Vaccine: 50+ Years Completed 01/14/2018, 10/13/2015, 01/29/2013, Additional history exists Pneumococcal Vaccine: Peds (0 to 5 Years) and At-Risk Patients (6 to 49 Years) Discontinued 01/14/2018, 10/13/2015, 01/29/2013, Additional history exists Hepatitis B Vaccine Aged Out No longe r eligible based on patient's age to complete this topic Insurance Medicare [facility] Medicare Care Teams Printing And Stamping Supervisor Relationship Specialty Start Date End Date Lesli Barry MD PCP - General Internal Medicine 01/08/21
== END 2025-01-06 10:34 | disposition home or self-care (01) ==
LOC: HO.HKAS 09:52
PROVIDERS: PCP Internal Medicine; Visit Provider Internal Medicine Nephrology
DX: I10 Essential (primary) hypertension (principal); N18.31 Chronic kidney disease, stage 3a; N52.9 Male erectile dysfunction, unspecified
CPT/HCPCS: 99214